=== PATIENT | female | born 1985 | race Caucasian/White ===

== ENCOUNTER 2017-10-10 11:10 | Outpatient (RCR) | payer OTHER ==
[~2017-10-10] VITALS: Ht 167.6 cm; Wt 82.6 kg
[~2017-10-10 11:10] MED LIST: AZIT-1 PO; LEVO-85 PO; PRE1 PO; PRED20TA6 PO
[2017-10-10 11:16] VITALS: BP 114/85
[2017-10-10] MEDS ORDERED: ROMIPLOSTIM 250 MCG SUBQ ONE (12:00)
== END 2017-10-10 13:01 | disposition home or self-care (01) ==
LOC: SPU 11:10
PROVIDERS: ATTEND Internal Medicine Hematology
DX: D69.3 Immune thrombocytopenic purpura (principal)
CPT/HCPCS: 96372; J2796

== ENCOUNTER → 2017-10-16 | Outpatient (CLI) | payer OTHER ==
[~2017-10-16] MED LIST changes: +ROMIPLOSTIM 250 MCG SUBQ ONE
[2017-10-16 15:35] VITALS: BP 115/76
== END ==
LOC: SPU 14:47
PROVIDERS: ATTEND Nurse Practitioner Family
DX: D69.3 Immune thrombocytopenic purpura (principal)
CPT/HCPCS: 36415; 96372; J2796

== ENCOUNTER 2017-10-26 08:00 | Outpatient (RCR) | payer OTHER ==
[2017-08-03 09:11] VITALS: BP 118/82
[2017-08-03 09:18] LABS: PLATELET COUNT, AUTOMATED 239 K/uL (150-450)
--- NOTE | 2017-08-03 09:46 | ONC Progress Note - NP.Halsey ---
Patient History Date of Service Aug 03, 2017 Reason For Visit/HPI Patient is seen in the clinic today for follow-up of her idiopathic thrombocytopenia purpura. Patient is currently on 0.5 mg of prednisone and is scheduled to discontinue prednisone completely on 08/06/2017. She reports that she is feeling very well and previous side effects of her extra chin and her buffalo hump have resolved. She does have some jittery feeling several days after decreasing her tapered dose which resolves. She denies any bleeding or bruising. She denies any fever or chills. She continues to go to college classes and has no problems concentrating. Problem List (1) Idiopathic thrombocytopenia Medical History Family History: Diabetes mellitus (DM) Siblings x3 FH: HTN (hypertension) MOTHER FH: asthma Siblings x3 FH: breast cancer MOTHER FH: skin cancer MOTHER Psychosocial History Social History Patient is engaged with no children. 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 She is a never smoker. She drinks socially. No abuse of illicit drugs. Smoking Status: Never Smoker Medications and Allergies Active Scripts Prednisone (PREDNISONE) 1 Mg Tab, 1 MG PO QDAY, #35 TAB 1 Refill Tapering dose, take as directed 2.5mg x 1 week and then 1.5 mg x 1 week then .5mg x 1 week Prov:LEONORA CAPELLAN-KERA, ONC 07/13/17 Prednisone (PREDNISONE) 20 Mg Tablet, 60 MG PO QDAY, #90 TAB 1 Refill Prov:LEONORA CAPELLAN-BC, ONC 05/21/17 Allergies: Coded Allergies: cefaclor (Verified Allergy, Unknown, 01/08/17) Review of System/Physical Exam Review of Systems Hematologic: Positive for Fatigue (mild) Physical Exam Vital Signs Temperature: 97.5 Pulse: 71 BP Systolic: 118 BP Diastolic: 82 Respiratory Rate: 16 O2 SAT: 91 O2 Delivery: Height (inches) 66.00 Weight lb: Weight oz: Weight Kg (Antonino): Pain: 0 ECOG Score: 0 General: Stable, Well Developed, Well Nourished, Not In Acute Distress Psychiatric: Mood appears normal, Affect appears normal Skin: No Skin Rashes, No Bruising, No Purpura Other Rest of the exam was deferred today due to conversation and management of her ITP discussion Diagnostic Studies Diagnostic Studies Laboratory Laboratory Tests 08/03/17 09:05 Laboratory Tests 08/03/17 09:05: White Blood Count 6.5, Red Blood Count 4.88, Hemoglobin 15.0, Hematocrit 43.2, Mean Corpuscular Volume 88.5, Mean Corpuscular Hemoglobin 30.8, Mean Corpuscular Hemoglobin Concent 34.7, Red Cell Distribution Width 14.0, Platelet Count 239, Mean Platelet Volume 7.6, Neutrophils (%) (Auto) 62.6, Lymphocytes (% ) (Auto) 23.3, Monocytes (%) (Auto) 11.1, Eosinophils (%) (Auto) 2.0, Basophils (%) (Auto) 1.0, Nucleated RBC Relative Count (auto) 0.0, Neutrophils # (Auto) 4.1, Lymphocytes # (Auto) 1.5, Monocytes # (Auto) 0.7, Eosinophils # (Auto) 0.1 , Basophils # (Auto) 0.1, Nucleated RBC Absolute Count (auto) 0.00, Sodium Level 138, Potassium Level 4.2, Chloride Level 105, Carbon Dioxide Level 23, Blood Urea Nitrogen 18, Creatinine 0.80, Glomerular Filtration Rate Calc > 60.0 , Random Glucose 84, Calcium Level 9.6, Total Bilirubin 0.4, Aspartate Amino Transf (AST/SGOT) 23, Alanine Aminotransferase (ALT/SGPT) 38, Alkaline Phosphatase 47, Total Protein 7.2, Albumin 4.2 Assessment and Plan Assessment & Plan Acute idiopathic thrombocytopenia purpura with severe thrombocytopenia at 7000. Patient received IVIG 1 g/kg daily for two days, April 23, 2017 and April. Her platelet count improved from 8000 to 23,000. Patient received also prednisone at 80 mg daily and she is currently on prednisone taper. She is currently on 0.5 mg taper. She will discontinue prednisone on 08/06/2017. If she appears to have side effects from the taper we did discuss possibly due in 0.5 mg every other day times a week which means then she will then discontinue the following Sunday. We'll continue to do a CBC weekly 4 weeks and she will follow with Dr. Alejandra to review results. If it any time her platelets begin to significantly drop she will be restarted on prednisone. Amenorrhea possibly experienced by prednisone. 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 We will reassess at her next office visit 1. Continue prednisone 0.5mg until 08/06/2017 and then discontinue We will continue monitoring CBC weekly 2. Patient will contact us if she has questions or concerns or develops abnormal bleeding I personally spent a total of 15 minutes. Of that 15 minutes was counseling/ coordination of patient's care. See my note above for details. LEONORA CAPELLAN BANDING MACHINE OPERATOR-BC, ONC Aug 03, 2017 09:46
[2017-08-10 09:59] VITALS: BP 120/82
[2017-08-10 10:02] LABS: PLATELET COUNT, AUTOMATED 299 K/uL (150-450)
[2017-08-17 11:48] VITALS: BP 119/79
[2017-08-17 11:58] LABS: PLATELET COUNT, AUTOMATED 275 K/uL (150-450)
[2017-08-24 14:04] LABS: PLATELET COUNT, AUTOMATED 253 K/uL (150-450)
[2017-09-07 08:50] LABS: PLATELET COUNT, AUTOMATED 95 K/uL (150-450)
[2017-09-07 09:17] VITALS: BP 116/79
[2017-09-10 08:52] VITALS: BP 124/86
[2017-09-10 08:59] LABS: PLATELET COUNT, AUTOMATED 119 K/uL (150-450)
--- NOTE | 2017-09-10 09:06 | Oncology Note ---
Patient is seen briefly in the clinic today post redraw of CBC. Previously platelet count was down to 95,000, on redraw platelet count is increased to 119, 000. Patient has been on antibiotics, Levaquin 500 mg by mouth daily since Sunday. She will take Levaquin with her as they are traveling on a cruise. Patient will follow when she returns from the cruise with repeat CBC. Patient verbalized understanding and that if she noticed any acute bleeding or bruising she would seek medical care. LEONORA CAPELLAN SUGARCANE PLANTER-BC, ONC Sep 10, 2017 09:06
[2017-09-21 14:36] VITALS: BP 116/82
--- NOTE | 2017-09-21 20:30 | ONCOLOGY FOLLOW UP NOTE ---
EVENT DATE: September 21, 2017 DIAGNOSES Acute idiopathic thrombocytopenia purpura. CHIEF COMPLAINT Patient is here today for followup of her ITP. HEMATOLOGY HISTORY Patient is a 32-year-old female with no significant past medical history who presented to the emergency department of [facility] with low platelets. She noticed recently that she had heavy periods for the last six months, and for the last month prior to her presentation she noticed increased bruising, and for the week prior to her presentation she started to have multiple episodes of prolonged epistaxis lasting more than one hour. She felt tired and fatigued and she has also shortness of breath, so the patient saw her primary care provider, Darshana Cleveland, who ordered a CBC which showed a platelet count of 7000. On her presentation to the emergency department at [facility] on April 27, 2017, her CBC showed a white count of 9.96, hemoglobin 15.3, hematocrit 41.4% and platelet count 8000. Patient received two daily doses at 1 g/kg between April 27, 2017 and April, and her repeat CBC on April 28, 2017 showed a platelet count of 12,000 , and on April 29, 2017 her platelet count was 23,000, trending up. Patient also started prednisone at daily doses of 80 mg on April 28, 2017. HISTORY OF PRESENT ILLNESS Patient is here today for followup of her ITP. She is off prednisone for a few weeks now. She is complaining of cough with expectoration, shortness of breath and wheezing from recent upper respiratory tract infection. She has some sinus headaches sometimes, but other than that she is really doing very well. PAST MEDICAL HISTORY 1. Pneumonia. 2. History of broken bones. PAST SURGICAL HISTORY Insignificant. SOCIAL HISTORY Patient is engaged with no children. 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 She is a never smoker. She drinks socially. No abuse of illicit drugs. FAMILY HISTORY Maternal grandmother with Kingston's granulomatosis. Mother with breast cancer. Paternal grandfather with bladder cancer. Maternal grandfather with prostate cancer. CURRENT MEDICATIONS Nexium 20 mg daily. ALLERGIES CEFACLOR which caused hives. REVIEW OF SYSTEMS CONSTITUTIONAL: She has occasional sweating. HEENT: Ears: No tinnitus or hearing problem. Nose: She had two episodes of epistaxis since she has been discharged from the hospital, but she actually stayed only for a few minutes. Throat: No sore throat or mouth ulcers. Eyes: No diplopia or visual changes. RESPIRATORY: The patient has cough with expectoration, shortness of breath and wheezing. CARDIOVASCULAR: No chest pain, orthopnea, or paroxysmal nocturnal dyspnea (PND) . No edema. No palpitations. GASTROINTESTINAL: No nausea or vomiting. No diarrhea or constipation. No change in bowel movements. No heartburn or swallowing difficulties. No abdominal pain. No jaundice. No hematemesis, melena or rectal bleeding. GENITOURINARY: No hematuria or dysuria. MUSCULOSKELETAL: She has redistribution of fat over the back of her neck with neck pain. NEUROLOGICAL: She has sinus headache. HEMATOLOGIC/LYMPHATIC: No bleeding or easy bruising. No weakness or fatigue. No enlarged lymph nodes. SKIN: No skin rash or lumps. PSYCHIATRIC: No anxiety or depression. PHYSICAL EXAMINATION GENERAL: Looks stable. Well-developed, well-nourished, and in no acute distress. VITAL SIGNS: Blood pressure 116/82, pulse 70 per minute, respirations 16 per minute, temperature 97.7, pulse ox 91% on room air. HEENT: Head: Atraumatic. No sinus tenderness to palpation. Eyes: No icterus or conjunctivitis. Mouth and throat: No oral thrush or mucositis. NECK: Supple. No cervical or supraclavicular lymphadenopathy. LUNGS: Clear to auscultation and percussion bilaterally. HEART: Regular rate and rhythm. No gallops, murmurs, clicks or rubs. ABDOMEN: Soft and lax. No tenderness. No hepatosplenomegaly. No masses. EXTREMITIES: No cyanosis, clubbing or edema. LYMPHATICS: No peripheral lymphadenopathy. NEUROLOGICAL: Conscious, alert and oriented times three. No focal motor or sensory deficits. PSYCHIATRIC: Mood and affect appear normal. SKIN: No skin rash, bruise or purpuric eruption. DIAGNOSTIC DATA CBC showed white count 5000, hemoglobin 14.9, hematocrit 42.7, platelets 119, 000. ASSESSMENT Acute idiopathic thrombocytopenia purpura with severe thrombocytopenia at 7000. Patient received IVIG 1 g/kg daily for two days, April 23, 2017 and April. Her platelet count improved from 8000 to 23,000. Patient received prednisone 80 mg daily, which was tapered over the few months after that and she is off prednisone for about four weeks now. Her last platelet count done on September 10, 2017 was 119,000. I am planning to check her blood count in a week, then every two weeks, and I will see her in a month from now with CBC and chem panel at that time. If the patient is steroid dependent and her platelet count starts to drop after being off prednisone, then I will start to treat her with Nplate. I explained that to the patient. She is agreeable with the plan of management. PLAN 1. CBC in a week and then every two weeks after that. 2. Patient to return on October 26, 2017 with CBC, chem panel. 3. Patient is to contact us for any new concerns or complaints. ASHISH
[2017-09-28 08:57] VITALS: BP 112/70
[2017-09-28 09:09] LABS: PLATELET COUNT, AUTOMATED 64 K/uL (150-450)
[2017-10-09 15:15] VITALS: BP 116/82
[2017-10-09 15:56] LABS: PLATELET COUNT, AUTOMATED 30 K/uL (150-450)
--- NOTE | 2017-10-09 17:22 | ONC Progress Note - NP.Halsey ---
Patient History Date of Service Oct 09, 2017 Reason For Visit/HPI Patient is seen in the clinic today for follow-up of her idiopathic thrombocytopenia purpura. Patient had labs completed on 09/28/2017 and was noted to have a decreased platelet count of 64,000, this is a decrease from prior lab draw of 119,000. Patient noticed that she was having increased fatigue and bruising on her arm and by without trauma. Patient was concerned and called the clinic today to request a CBC to have her platelet checked. Platelet level today is 30,000. In review of Dr. Alejandra's last note, he indicated that if her platelet count dropped after being off of prednisone that he would start her on Nplate. Review of side effects and education regarding this medication was completed today. Patient reports that side effects from the prednisone appeared to be worse than side effects of Nplate. Patient also received education regarding safety measures with a platelet count of 30,000. She verbalized understanding that if she experienced any type of trauma to her head that she should go directly to the emergency room. Currently patient is having no evidence of abnormal bleeding. Problem List (1) Idiopathic thrombocytopenia Medical History Family History: Diabetes mellitus (DM) Siblings x3 FH: HTN (hypertension) MOTHER FH: asthma Siblings x3 FH: breast cancer MOTHER FH: skin cancer MOTHER Psychosocial History Social History Patient is engaged with no children. 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 She is a never smoker. She drinks socially. No abuse of illicit drugs. Smoking History: No Smoking Status: Never Smoker Medications and Allergies Active Scripts Levofloxacin 500 Mg Tab (LEVAQUIN 500 MG TAB) 500 Mg Tablet, 500 MG PO DAILY, # 30 TAB Prov:LEONORA CAPELLAN QUARTER SECTION IRONER-BC, ONC 09/07/17 Allergies: Coded Allergies: cefaclor (Verified Allergy, Unknown, 01/08/17) Review of System/Physical Exam Review of Systems All Systems Reviewed/Normal: Yes, Except as Noted Constitutional: Positive for Recent Infection (patient previously experienced upper respiratory cold. Symptoms have since been resolved) Hematologic: Positive for Fatigue Musculoskeletal: Positive for Muscle Pain Skin: Positive for Other (bruise on her arm and upper thigh) Physical Exam Vital Signs Temperature: 97.9 Pulse: 76 BP Systolic: 116 BP Diastolic: 82 Respiratory Rate: 16 O2 SAT: 96 O2 Delivery: Height (inches) 66.00 Weight lb: Weight oz: Weight Kg (Antonino): Pain: 0 ECOG Score: 0 General: Stable, Well Developed, Not In Acute Distress Psychiatric: Mood appears normal, Affect appears normal Skin: No Skin Rashes, No Bruising, No Purpura Other Rest of the exam was deferred today to discuss treatment with Nplate. Diagnostic Studies Diagnostic Studies Laboratory Laboratory Tests 09/28/17 09:01 10/09/17 15:15 Laboratory Tests 09/28/17 09:01: Sodium Level 138, Potassium Level 4.0, Chloride Level 105, Carbon Dioxide Level 23, Blood Urea Nitrogen 11, Creatinine 0.80, Glomerular Filtration Rate Calc > 60.0, Random Glucose 102, Calcium Level 9.0, Total Bilirubin 0.5, Aspartate Amino Transf (AST/SGOT) 49, Alanine Aminotransferase (ALT/SGPT) 40, Alkaline Phosphatase 47, Total Protein 6.6, Albumin 3.9 10/09/17 15:15: White Blood Count 6.3, Red Blood Count 4.88, Hemoglobin 14.8, Hematocrit 43.2, Mean Corpuscular Volume 88.5, Mean Corpuscular Hemoglobin 30.3, Mean Corpuscular Hemoglobin Concent 34.2, Red Cell Distribution Width 13.0, Platelet Count 30, Mean Platelet Volume 10.0, Neutrophils (%) (Auto) 55.7, Lymphocytes (% ) (Auto) 31.5, Monocytes (%) (Auto) 9.0, Eosinophils (%) (Auto) 3.0, Basophils ( %) (Auto) 0.8, Nucleated RBC Relative Count (auto) 0.0, Neutrophils # (Auto) 3.5 , Lymphocytes # (Auto) 2.0, Monocytes # (Auto) 0.6, Eosinophils # (Auto) 0.2, Basophils # (Auto) 0.0, Nucleated RBC Absolute Count (auto) 0.00, Peripheral Blood Smear Yes Assessment and Plan Assessment & Plan Acute idiopathic thrombocytopenia purpura with severe thrombocytopenia at 7000. Patient received IVIG 1 g/kg daily for two days, April 23, 2017 and April. Her platelet count improved from 8000 to 23,000. Patient received prednisone 80 mg daily, which was tapered over the few months after that and she is off prednisone for about four weeks now. Her last platelet count done on September 10, 2017 was 119,000. Patient then had labs drawn on 09/28/2017 with a platelet level was 64,000, today's level is 30,000. Discussion of initiation of Nplate 1 mcg/kg was completed today. Patient is not interested in restarting prednisone as she has a wedding in February. Also in review of Dr. Alejandra's dictation, it is noted that patient is probably steroid dependent with her decrease of platelets off of prednisone. I did call Dr. Leon and discuss the plan of care. Her recommendation was to start Nplate as well. CBC will be completed weekly and Nplate will be dosed accordingly. I explained that to the patient. She is agreeable with the plan of management. She will follow with Dr. Alejandra in 2-3 weeks when he is available. Plan: Nplate 1mcg/kg to start with insurance approval and given weekly according to the dosing guidelines CBC weekly prior to Nplate Follow with Dr. Alejandra in 2-3 weeks I personally spent a total of 25 minutes. Of that 15 minutes was counseling/ coordination of patient's care. See my note above for details. LEONORA CAPELLAN QUARTER SECTION IRONER-BC, ONC Oct 09, 2017 17:22
[2017-10-16 14:10] VITALS: BP 124/86
--- NOTE | 2017-10-16 15:51 | ONC Progress Note - NP.Halsey ---
Patient History Date of Service Oct 16, 2017 Reason For Visit/HPI Patient is seen in the clinic today for follow-up of her idiopathic thrombocytopenia purpura. Patient reported that she felt like she was having increased fatigue and abnormal feeling. CBC was drawn today and patient's platelets were noted at 82,000. Patient did receive Nplate last week 1 mg/kg for decreased platelet count of 64,000. Patient is responding. He denies any side effects today. She is slightly anxious. After education by myself last week pharmacy did visit with patient as well to review possible side effects. Problem List (1) Idiopathic thrombocytopenia Oncology History Patient is a 32-year-old female with no significant past medical history who presented to the emergency department of [facility] with low platelets. She noticed recently that she had heavy periods for the last six months, and for the last month prior to her presentation she noticed increased bruising, and for the week prior to her presentation she started to have multiple episodes of prolonged epistaxis lasting more than one hour. She felt tired and fatigued and she has also shortness of breath, so the patient saw her primary care provider, Darshana Cleveland, who ordered a CBC which showed a platelet count of 7000. On her presentation to the emergency department at [facility] on April 27, 2017, her CBC showed a white count of 9.96, hemoglobin 15.3, hematocrit 41.4% and platelet count 8000. Patient received two daily doses at 1 g/kg between April 27, 2017 and April, and her repeat CBC on April 28, 2017 showed a platelet count of 12,000 , and on April 29, 2017 her platelet count was 23,000, trending up. Patient also started prednisone at daily doses of 80 mg on April 28, 2017 with a slow taper until discontinuation. Patient then had recurrent thrombocytopenia approximately 5 weeks off of prednisone therapy. Platelet level on 09-28-17 was 64,000, platelet decreased to 30,000 on 10/09/2017. Patient was started on Nplate 10-10-17, one milligram per kilogram. Medical History Family History: Diabetes mellitus (DM) Siblings x3 FH: HTN (hypertension) MOTHER FH: asthma Siblings x3 FH: breast cancer MOTHER FH: skin cancer MOTHER Psychosocial History Social History Patient is engaged with no children. 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 She is a never smoker. She drinks socially. No abuse of illicit drugs. Smoking History: No Smoking Status: Never Smoker Medications and Allergies Active Scripts Levofloxacin 500 Mg Tab (LEVAQUIN 500 MG TAB) 500 Mg Tablet, 500 MG PO DAILY, # 30 TAB Prov:LEONORA CAPELLAN HEAD CHAR FILTER TANK TENDER-BC, ONC 09/07/17 Allergies: Coded Allergies: cefaclor (Verified Allergy, Unknown, 01/08/17) Review of System/Physical Exam Review of Systems All Systems Reviewed/Normal: Yes, Except as Noted Hematologic: Positive for Fatigue Physical Exam Vital Signs Temperature: 97.7 Pulse: 73 BP Systolic: 124 BP Diastolic: 86 Respiratory Rate: 16 O2 SAT: 99 O2 Delivery: Height (inches) 66.00 Weight lb: Weight oz: Weight Kg (Antonino): Pain: 0 ECOG Score: 0 General: Stable, Well Developed, Well Nourished, Not In Acute Distress HEENT: No Trauma Psychiatric: Mood appears normal, Affect appears normal Skin: No Skin Rashes, No Bruising, No Purpura Diagnostic Studies Diagnostic Studies Laboratory Laboratory Tests 09/28/17 09:01 10/16/17 14:05 Laboratory Tests 09/28/17 09:01: Sodium Level 138, Potassium Level 4.0, Chloride Level 105, Carbon Dioxide Level 23, Blood Urea Nitrogen 11, Creatinine 0.80, Glomerular Filtration Rate Calc > 60.0, Random Glucose 102, Calcium Level 9.0, Total Bilirubin 0.5, Aspartate Amino Transf (AST/SGOT) 49, Alanine Aminotransferase (ALT/SGPT) 40, Alkaline Phosphatase 47, Total Protein 6.6, Albumin 3.9 10/09/17 15:15: Red Blood Count 4.88, Mean Corpuscular Volume 88.5, Mean Corpuscular Hemoglobin 30.3, Mean Corpuscular Hemoglobin Concent 34.2, Red Cell Distribution Width 13.0 , Mean Platelet Volume 10.0, Monocytes (%) (Auto) 9.0, Eosinophils (%) (Auto) 3.0, Basophils (%) (Auto) 0.8, Nucleated RBC Relative Count (auto) 0.0, Monocytes # (Auto) 0.6, Eosinophils # (Auto) 0.2, Basophils # (Auto) 0.0, Nucleated RBC Absolute Count (auto) 0.00, Peripheral Blood Smear Yes 10/16/17 14:05: White Blood Count 8.3, Hemoglobin 15.0, Hematocrit 43.5, Platelet Count 82, Neutrophils (%) (Auto) 67.5, Lymphocytes (%) (Auto) 23.3, Neutrophils # (Auto) 5.6, Lymphocytes # (Auto) 1.9 Assessment and Plan Assessment & Plan Acute idiopathic thrombocytopenia purpura with severe thrombocytopenia at 7000. Patient received IVIG 1 g/kg daily for two days, April 23, 2017 and April. Her platelet count improved from 8000 to 23,000. Patient received prednisone 80 mg daily, which was tapered over the few months after that and she is off prednisone for about four to five weeks and her platelet level dropped. . Her last platelet count done on September 10, 2017 was 119,000. Patient then had labs drawn on 09/28/2017 with a platelet level was 64,000, and then 30,000. Discussion of initiation of Nplate 1 mcg/kg was completed with education regarding side effects. Pharmacy also met with patient. In review of Dr. Alejandra's dictation, it is noted that patient is probably steroid dependent with her decrease of platelets off of prednisone. Dr. Leon was called and plan of care was discussed. Nplate started 1 mg/kg on 10/10/2017 with a platelet level of 30,000. Platelets are increased to 80,000 today.I will continue with weekly Nplate and CBC dosed accordingly. If platelet count is greater than 400,000 dose will be withheld. I am following up to date guideline recommendations. She will follow with Dr. Alejandra in 2-3 weeks when he is available. Plan: Nplate 1mcg/kg today and given weekly according to the dosing guidelines CBC weekly prior to Nplate Follow with Dr. Alejandra in 2-3 weeks I personally spent a total of 20 minutes. Of that 15 minutes was counseling/ coordination of patient's care. See my note above for details. LEONORA CAPELLAN HEAD CHAR FILTER TANK TENDER-BC, ONC Oct 16, 2017 15:51
[~2017-10-26 08:00] MED LIST changes: -ROMIPLOSTIM 250 MCG SUBQ ONE
[2017-10-26 08:29] VITALS: BP 114/72
== END 2017-10-31 ==
LOC: SPU 08:00
PROVIDERS: ATTEND Internal Medicine Hematology
DX: D69.3 Immune thrombocytopenic purpura (principal); Z79.899 Other long term (current) drug therapy; N91.2 Amenorrhea, unspecified; R05 Cough; R06.02 Shortness of breath; R53.83 Other fatigue
CPT/HCPCS: 36415; 82040; 82247; 82310; 82374; 82435; 82565; 82947; 84075; 84132; 84155; 84295; 84443; 84450; 84460; 84520; 85025; 85027; 99211; 99212

== ENCOUNTER → 2017-10-26 | Outpatient (CLI) | payer OTHER ==
--- NOTE | 2017-10-26 16:31 | ONCOLOGY FOLLOW UP NOTE ---
EVENT DATE: October 26, 2017 DIAGNOSES Acute idiopathic thrombocytopenia purpura. CHIEF COMPLAINT Patient is here today for followup of her ITP. HEMATOLOGY HISTORY Patient is a 32-year-old female with no significant past medical history who presented to the emergency department of [facility] with low platelets. She noticed recently that she had heavy periods for the last six months, and for the last month prior to her presentation she noticed increased bruising, and for the week prior to her presentation she started to have multiple episodes of prolonged epistaxis lasting more than one hour. She felt tired and fatigued and she has also shortness of breath, so the patient saw her primary care provider, Darshana Cleveland, who ordered a CBC which showed a platelet count of 7000. On her presentation to the emergency department at [facility] on April 27, 2017, her CBC showed a white count of 9.96, hemoglobin 15.3, hematocrit 41.4% and platelet count 8000. Patient received two daily doses at 1 g/kg between April 27, 2017 and April, and her repeat CBC on April 28, 2017 showed a platelet count of 12,000 , and on April 29, 2017 her platelet count was 23,000, trending up. Patient also started prednisone at daily doses of 80 mg on April 28, 2017. HISTORY OF PRESENT ILLNESS Patient is here today for followup of her ITP with relapse, currently on Nplate therapy. She is complaining of being achy and having some headache for about a day after her Nplate shot. Other than that she is really doing very well. Her bruising resolved completely. PAST MEDICAL HISTORY 1. Pneumonia. 2. History of broken bones. PAST SURGICAL HISTORY Insignificant. SOCIAL HISTORY Patient is engaged with no children. 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 She is a never smoker. She drinks socially. No abuse of illicit drugs. FAMILY HISTORY Maternal grandmother with Kingston's granulomatosis. Mother with breast cancer. Paternal grandfather with bladder cancer. Maternal grandfather with prostate cancer. CURRENT MEDICATIONS Nexium 20 mg daily. ALLERGIES CEFACLOR which caused hives. REVIEW OF SYSTEMS CONSTITUTIONAL: She has occasional sweating. HEENT: Ears: No tinnitus or hearing problem. Nose: She had two episodes of epistaxis since she has been discharged from the hospital, but she actually stayed only for a few minutes. Throat: No sore throat or mouth ulcers. Eyes: No diplopia or visual changes. RESPIRATORY: The patient has cough with expectoration, shortness of breath and wheezing. CARDIOVASCULAR: No chest pain, orthopnea, or paroxysmal nocturnal dyspnea (PND) . No edema. No palpitations. GASTROINTESTINAL: No nausea or vomiting. No diarrhea or constipation. No change in bowel movements. No heartburn or swallowing difficulties. No abdominal pain. No jaundice. No hematemesis, melena or rectal bleeding. GENITOURINARY: No hematuria or dysuria. MUSCULOSKELETAL: The patient feels achy after the Nplate shot for nearly a day or day and a half after the shot. NEUROLOGICAL: She has a headache after Nplate for about a day or day and a half. HEMATOLOGIC/LYMPHATIC: No bleeding or easy bruising. No weakness or fatigue. No enlarged lymph nodes. SKIN: No skin rash or lumps. PSYCHIATRIC: No anxiety or depression. PHYSICAL EXAMINATION GENERAL: Looks stable. Well-developed, well-nourished, and in no acute distress. VITAL SIGNS: Blood pressure 114/72, pulse 76 per minute, respirations 16 per minute, temperature 97, pulse ox 96% on room air. HEENT: Head: Atraumatic. No sinus tenderness to palpation. Eyes: No icterus or conjunctivitis. Mouth and throat: No oral thrush or mucositis. NECK: Supple. No cervical or supraclavicular lymphadenopathy. LUNGS: Clear to auscultation and percussion bilaterally. HEART: Regular rate and rhythm. No gallops, murmurs, clicks or rubs. ABDOMEN: Soft and lax. No tenderness. No hepatosplenomegaly. No masses. EXTREMITIES: No cyanosis, clubbing or edema. LYMPHATICS: No peripheral lymphadenopathy. NEUROLOGICAL: Conscious, alert and oriented times three. No focal motor or sensory deficits. PSYCHIATRIC: Mood and affect appear normal. SKIN: No skin rash, bruise or purpuric eruption. DIAGNOSTIC DATA CBC showed white count 7.2, hemoglobin 15.2, hematocrit 44, platelets 57,000, which is down from 82,000. ASSESSMENT Acute idiopathic thrombocytopenia purpura with severe thrombocytopenia at 7000. Patient received IVIG 1 g/kg daily for two days, April 23, 2017 and April. Her platelet count improved from 8000 to 23,000. She received prednisone 1 mg/kg with total dose 80 mg, which was tapered over a few months after that, and patient was off prednisone, and her platelets after tapering the prednisone relapsed, so the patient started treatment with Nplate on October 10, 2016. Her platelet count improved from 32,000 to 82,000, and currently 57,000. I am planning to proceed with Nplate therapy today at 125 mcg subcutaneously, and I advised the patient to come every week to have blood count to be done, and we will adjust the dose of Nplate after that. I will see her in a month from now with CBC and chem panel. PLAN 1. Nplate 125 mcg subcutaneously today. 2. Patient to return in one month with CBC, chem panel. 3. CBC, chem panel to be checked weekly prior to Nplate therapy. 4. Patient to contact us for any new concern or complaints. MTDD
== END ==
LOC: SPU 09:07
PROVIDERS: ATTEND Internal Medicine Hematology
DX: D69.3 Immune thrombocytopenic purpura (principal); R51 Headache; R05 Cough
CPT/HCPCS: 96372; J2796

== ENCOUNTER → 2017-11-02 | Outpatient (CLI) | payer OTHER ==
[~2017-11-02] MED LIST changes: +ROMIPLOSTIM 250 MCG SUBQ ONE
== END ==
LOC: SPU 09:48
PROVIDERS: ATTEND Internal Medicine Hematology
DX: D69.3 Immune thrombocytopenic purpura (principal)
CPT/HCPCS: 96372; J2796

== ENCOUNTER → 2017-11-09 | Outpatient (CLI) | payer OTHER | LOC: SPU 10:11 | PROVIDERS: ATTEND Internal Medicine Hematology | DX: D69.3 Immune thrombocytopenic purpura (principal) | CPT/HCPCS: 96372; J2796 ==

== ENCOUNTER 2017-11-15 10:05 | Observation (INO) | payer OTHER ==
[~2017-11-15] VITALS: Ht 167.6 cm; Wt 84.6 kg
[~2017-11-15 10:05] MED LIST changes: -ROMIPLOSTIM 250 MCG SUBQ ONE
[2017-11-15] MEDS: ACETAMINOPHEN 325 MG TAB PO PRN (10:33)
[2017-11-15] MEDS: diphenhydrAMINE 50 MG/ML VIAL IVP PRN (10:33)
[2017-11-15] MEDS: methylPREDNIS SUCC 125 MG/2ML IVP PRN (10:34)
[2017-11-15] MEDS ORDERED: [UNRECOGNIZED DRUG - MIXTURE] IV ONE (11:30)
[2017-11-15 16:12] VITALS: BP 120/82
[2017-11-15 17:00] VITALS: BP 120/82
--- NOTE | 2017-11-15 18:59 | History & Physical ---
History of Present Illness History of Present Illness 32yo female with ITP was directly admitted for IVIG infusion. The patient denies bleeding or bruising. She had a routine CBC and was found to have a platelet count of 16k. She [facility]. She had no problems with the infusion. History Problems: (1) Idiopathic thrombocytopenia Status: Chronic Allergies: Coded Allergies: cefaclor (Verified Allergy, Unknown, 01/08/17) Patient History: Diabetes mellitus (DM) Siblings x3 FH: HTN (hypertension) MOTHER FH: asthma Siblings x3 FH: breast cancer MOTHER FH: skin cancer MOTHER Hx Smoking: No Smoking Status: Never Smoker Hx Alcohol Use: Yes Hx Substance Use Disorder: No Social Drug Use: Never Review of Systems All Systems Reviewed/Normal: Yes, Except as Noted Exam Vital Signs Vital Signs Date Time Temp Pulse Resp B/P (MAP) Pulse Ox O2 Delivery O2 Flow Rate FiO2 11/15/17 18:42 92 11/15/17 17:00 97.9 63 16 120/82 (95) Room Air General Appearance: Alert, Awake, No Acute Distress Cardiovascular: Regular Rate and Rhythm Respiratory: Clear to Auscultation GI: Abd Soft and Non-Tender Extremities: No Edema Medical Decision Making Data Points Item Value Date Time Platelet Count 145 K/uL L 11/02/17 0836 Platelet Count 36 K/uL *L 11/09/17 0935 Platelet Count 19 K/uL *L 11/14/17 0910 Platelet Count 16 K/uL *L 11/15/17 0823 White Blood Count 5.6 k/uL 11/02/17 0836 White Blood Count 6.7 k/uL 11/09/17 0935 White Blood Count 6.8 k/uL 11/14/17 0910 White Blood Count 6.8 k/uL 11/15/17 0823 Hemoglobin 15.2 g/dL 11/02/17 0836 Hemoglobin 16.0 g/dL 11/09/17 0935 Hemoglobin 14.9 g/dL 11/14/17 0910 Hemoglobin 15.2 g/dL 11/15/17 0823 Sodium Level 138 mmol/L 11/09/17 0935 Potassium Level 4.6 mmol/L 11/09/17 0935 Chloride Level 101 mmol/L 11/09/17 0935 Carbon Dioxide Level 28 mmol/L 11/09/17 0935 Blood Urea Nitrogen 12 mg/dl 11/09/17 0935 Creatinine 0.90 mg/dl 11/09/17 0935 Glomerular Filtration Rate Calc > 60.0 11/09/17 09 Random Glucose 87 mg/dl 11/09/17 0935 Calcium Level 9.9 mg/dl 11/09/17 0935 Total Bilirubin 0.3 mg/dl 11/09/17 0935 Aspartate Amino Transf (AST/SGOT) 26 U/L 11/09/17 0935 Alanine Aminotransferase (ALT/SGPT) 41 U/L 11/09/17 0935 Alkaline Phosphatase 53 U/L 11/09/17 0935 Total Protein 7.4 gm/dl 11/09/17 0935 Albumin 4.3 g/dl 11/09/17 0935 Assessment and Plan Problems: (1) Idiopathic thrombocytopenia Status: Chronic Assessment & Plan: Diagnosed in April. She received IVIG at [facility] at that time without problems. Now not responding to N-plate as well with a platelet count of 16k today. She has received 1 of 2 IVIG infusions with the second being tomorrow. CBC tomorrow and premedication with Benadryl, Methylprednisolone, and APAP. Copies to: DIMITRI MORENO MD Venous Thromboembolism Antithrombotics Is Pt On Any Antithrombotics?: No BRENDAN VEGA MD Nov 15, 2017 18:59
[2017-11-15 19:57] VITALS: BP 115/77
[2017-11-15] MEDS ORDERED: ACETAMINOPHEN 325 MG TAB PO PRN (20:15)
[2017-11-15] MEDS: hydrOXYzine PAMOATE 25 MG CAP PO PRN ×2 (20:32→21:47)
[2017-11-16 06:06] LABS: PLATELET COUNT, AUTOMATED 72 K/uL (150-450)
--- NOTE | 2017-11-16 06:55 | Hospitalist Depart ---
Discharge Summary Reason for Hosp/Final Diag: (1) Idiopathic thrombocytopenia Status: Chronic Hospital Course & Plan: Diagnosed in April. She received IVIG at [facility] at that time without problems. Now not responding to N-plate as well with a platelet count of 16k yesterday. She had received 1 of 2 IVIG infusions yesterday and her platelet count came up to 72k. Premedication with Benadryl, Methylprednisolone, and APAP. She will go home after the second infusion. Follow up including a CBC on 11/19 at the [facility]. Departure Weight (Pounds): 186 Weight (Ounces): 7.0 Result Diagram: 11/16/17 0525 Item Value Date Time Platelet Count 145 K/uL L 11/02/17 0836 Platelet Count 36 K/uL *L 11/09/17 0935 Platelet Count 19 K/uL *L 11/14/17 0910 Platelet Count 16 K/uL *L 11/15/17 0823 Platelet Count 72 K/uL L 11/16/17 0525 White Blood Count 9.2 k/uL 11/16/17 0525 Hemoglobin 13.9 g/dL 11/16/17 0525 Condition: Improved Discharge: Home Discharge Instructions Home Meds No Active Prescriptions or Reported Meds Diet: Regular Activity: As Tolerated Special Instructions: Follow up with the Cancer Center on 11/19 as scheduled. Copies to: DIMITRI MORENO MD Venous Thromboembolism Antithrombotics Is Pt On Any Antithrombotics?: No BRENDAN VEGA MD Nov 16, 2017 06:55
[2017-11-16] MEDS: ACETAMINOPHEN 325 MG TAB PO PRN (08:49)
[2017-11-16] MEDS: diphenhydrAMINE 50 MG/ML VIAL IVP PRN (08:55)
[2017-11-16] MEDS: methylPREDNIS SUCC 125 MG/2ML IVP PRN (08:55)
[2017-11-16 09:24] VITALS: BP 118/79
[2017-11-16 09:45] VITALS: BP 103/78
[2017-11-16 10:51] VITALS: BP 117/82
[2017-11-16] MEDS ORDERED: [UNRECOGNIZED DRUG - MIXTURE] IV ONE (11:30)
[2017-11-16 14:08] VITALS: BP 114/77
== END 2017-11-16 10:49 | disposition home or self-care (01) ==
LOC: UNDOADMOB 10:05 → MED 10:05
PROVIDERS: ADMIT Internal Medicine; ATTEND Internal Medicine
DX: D69.3 Immune thrombocytopenic purpura (principal)
CPT/HCPCS: 36415; 85025; G0378; G0379; J1200; J1459; J2930; Q0177

== ENCOUNTER → 2017-11-19 | Outpatient (CLI) | payer OTHER ==
[~2017-11-19] MED LIST changes: +ROMIPLOSTIM 250 MCG SUBQ ONE
== END ==
LOC: SPU 08:59
PROVIDERS: ATTEND Internal Medicine Hematology
DX: D69.3 Immune thrombocytopenic purpura (principal)
CPT/HCPCS: 96372; J2796

== ENCOUNTER → 2017-11-26 | Outpatient (CLI) | payer OTHER | LOC: SPU 08:28 | PROVIDERS: ATTEND Internal Medicine Hematology | DX: D69.3 Immune thrombocytopenic purpura (principal) | CPT/HCPCS: 96372; J2796 ==

== ENCOUNTER → 2017-12-03 | Outpatient (CLI) | payer OTHER ==
[2017-12-03 14:02] VITALS: BP 130/80
== END ==
LOC: SPU 13:58
PROVIDERS: ATTEND Internal Medicine Hematology
DX: D69.3 Immune thrombocytopenic purpura (principal)
CPT/HCPCS: 96372; J2796

== ENCOUNTER → 2017-12-10 | Outpatient (CLI) | payer OTHER ==
[2017-12-10 08:25] VITALS: BP 105/77
== END ==
LOC: SPU 07:41
PROVIDERS: ATTEND Internal Medicine Hematology
DX: D69.3 Immune thrombocytopenic purpura (principal)
CPT/HCPCS: 85027; 96372; J2796; 82040; 82247; 82310; 82374; 82435; 82565; 82947; 84075; 84132; 84155; 84295; 84450; 84460; 84520

== ENCOUNTER → 2017-12-17 | Outpatient (CLI) | payer OTHER ==
[2017-12-10 08:25] VITALS: BP 105/77
== END ==
LOC: SPU 14:22
PROVIDERS: ATTEND Internal Medicine Hematology
DX: D69.3 Immune thrombocytopenic purpura (principal)
CPT/HCPCS: 96372; J2796

== ENCOUNTER → 2017-12-24 | Outpatient (CLI) | payer OTHER ==
[2017-12-24 09:17] VITALS: BP 115/83
== END ==
LOC: SPU 08:18
PROVIDERS: ATTEND Internal Medicine Hematology
DX: D69.3 Immune thrombocytopenic purpura (principal)
CPT/HCPCS: 96372; J2796

== ENCOUNTER → 2017-12-27 | Outpatient (CLI) | payer OTHER ==
[~2017-12-27] MED LIST changes: -ROMIPLOSTIM 250 MCG SUBQ ONE
--- NOTE | 2017-12-27 17:55 | RADIOLOGY IMAGING REPORT ---
FACILITY: [facility] PATIENT NAME: Dayana Cazares : 1985 MR: [id number] V: [id number] EXAM DATE: ORDERING PHYSICIAN: DIMITRI MORENO TECHNOLOGIST: Location: [facility] Patient: Dayana Cazares : 1985 Visit/Account:[id number] Date of Sevice: 12/27/2017 GALLBLADDER HISTORY: Right upper quadrant pain since Sunday COMPARISON: None. FINDINGS: Gallbladder: Unremarkable; no stones or sludge. Liver: Negative. Common duct: Normal, two mm diameter. Pancreas: Partially obscured by bowel, visualized aspects unremarkable. Right kidney: Right kidney appears unremarkable measuring 10.4 cm in length Upper abdominal aorta and IVC: Patent. Ascites: None visualized. IMPRESSION: Unremarkable right upper quadrant ultrasound Report Dictated By: Jennifer Angulo MD at 12/27/2017 5:48 PM Report E-Signed By: Jennifer Angulo MD at 12/27/2017 5:50 PM WSN:[id number]
== END ==
LOC: US 16:19
PROVIDERS: ATTEND Internal Medicine Hematology
DX: R10.11 Right upper quadrant pain (principal); D69.3 Immune thrombocytopenic purpura
CPT/HCPCS: 76705

== ENCOUNTER → 2017-12-31 | Outpatient (CLI) | payer OTHER ==
[~2017-12-31] MED LIST changes: +ROMIPLOSTIM 250 MCG SUBQ ONE
== END ==
LOC: SPU 08:15
PROVIDERS: ATTEND Internal Medicine Hematology
DX: D69.3 Immune thrombocytopenic purpura (principal)
CPT/HCPCS: 36415; 85027; 96372; J2796; 82040; 82247; 82310; 82374; 82435; 82565; 82947; 84075; 84132; 84155; 84295; 84450; 84460; 84520

== ENCOUNTER → 2018-01-07 | Outpatient (CLI) | payer OTHER | LOC: SPU 09:17 | PROVIDERS: ATTEND Internal Medicine Hematology | DX: D69.3 Immune thrombocytopenic purpura (principal) | CPT/HCPCS: 96372; J2796 ==

== ENCOUNTER → 2018-01-14 | Outpatient (CLI) | payer OTHER | LOC: SPU 08:10 | PROVIDERS: ATTEND Internal Medicine Hematology | DX: D69.3 Immune thrombocytopenic purpura (principal) | CPT/HCPCS: 96372; J2796 ==

== ENCOUNTER → 2018-01-25 | Outpatient (CLI) | payer OTHER | LOC: SPU 09:40 | PROVIDERS: ATTEND Internal Medicine Hematology | DX: D69.3 Immune thrombocytopenic purpura (principal) | CPT/HCPCS: 96372; J2796 ==

== ENCOUNTER → 2018-01-30 | Outpatient (CLI) | payer OTHER | LOC: SPU 09:17 | PROVIDERS: ATTEND Internal Medicine Hematology | DX: D69.3 Immune thrombocytopenic purpura (principal) | CPT/HCPCS: 96372; J2796 ==

== ENCOUNTER → 2018-01-30 | Outpatient (RCR) | payer OTHER ==
[2017-11-02 08:28] VITALS: BP 124/83
[2017-11-09 09:31] VITALS: BP 109/75
[2017-11-14 09:12] VITALS: BP 120/93
[2017-11-15 08:15] VITALS: BP 113/80
[2017-11-19 08:30] VITALS: BP 126/96
[2017-11-23 14:12] VITALS: BP 109/79
--- NOTE | 2017-11-25 07:03 | [facility]-TAR[facility] ONCOLOGY NOTE ---
EVENT DATE: November 23, 2017 DIAGNOSES Acute idiopathic thrombocytopenia purpura. CHIEF COMPLAINT Patient is here today for followup of her ITP. HEMATOLOGY HISTORY Patient is a 32-year-old female with no significant past medical history who presented to the emergency department of [facility] with low platelets. She noticed recently that she had heavy periods for the last six months, and for the last month prior to her presentation she noticed increased bruising, and for the week prior to her presentation she started to have multiple episodes of prolonged epistaxis lasting more than one hour. She felt tired and fatigued and she has also shortness of breath, so the patient saw her primary care provider, Darshana Cleveland, who ordered a CBC which showed a platelet count of 7000. On her presentation to the emergency department at [facility] on April 27, 2017, her CBC showed a white count of 9.96, hemoglobin 15.3, hematocrit 41.4% and platelet count 8000. Patient received two daily doses at 1 g/kg between April 27, 2017 and April, and her repeat CBC on April 28, 2017 showed a platelet count of 12,000 , and on April 29, 2017 her platelet count was 23,000, trending up. Patient also started prednisone at daily doses of 80 mg on April 28, 2017. HISTORY OF PRESENT ILLNESS Patient is here today for followup of her ITP. She is feeling very well currently without any complaint. PAST MEDICAL HISTORY 1. Pneumonia. 2. History of broken bones. PAST SURGICAL HISTORY Insignificant. SOCIAL HISTORY Patient is engaged with no children. 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 She is a never smoker. She drinks socially. No abuse of illicit drugs. FAMILY HISTORY Maternal grandmother with Kingston's granulomatosis. Mother with breast cancer. Paternal grandfather with bladder cancer. Maternal grandfather with prostate cancer. CURRENT MEDICATIONS Nexium 20 mg daily. ALLERGIES CEFACLOR which caused hives. REVIEW OF SYSTEMS CONSTITUTIONAL: No appetite or weight change. No fever, chills or sweating. No recent infection. HEENT: Ears: No tinnitus or hearing problem. Nose: No nasal discharge or epistaxis. Throat: No sore throat or mouth ulcers. Eyes: No diplopia or visual changes. RESPIRATORY: No shortness of breath. No cough, expectoration or hemoptysis. CARDIOVASCULAR: No chest pain, orthopnea, or paroxysmal nocturnal dyspnea (PND) . No edema. No palpitations. GASTROINTESTINAL: No nausea or vomiting. No diarrhea or constipation. No change in bowel movements. No heartburn or swallowing difficulties. No abdominal pain. No jaundice. No hematemesis, melena or rectal bleeding. GENITOURINARY: No hematuria or dysuria. MUSCULOSKELETAL: No pain in the muscles, joints or bones. NEUROLOGICAL: No tingling or numbness in the hands or feet. No headaches or convulsions. HEMATOLOGIC/LYMPHATIC: No bleeding or easy bruising. No weakness or fatigued. No enlarged lymph nodes. SKIN: No skin rash or lumps. PSYCHIATRIC: No anxiety or depression. PHYSICAL EXAMINATION GENERAL: Looks stable. Well-developed, well-nourished, and in no acute distress. VITAL SIGNS: Blood pressure 109/79, pulse 74 per minute, respirations 16 per minute, temperature 98, pulse oximetry 94% on room air. HEENT: Head: Atraumatic. No sinus tenderness to palpation. Eyes: No icterus or conjunctivitis. Mouth and throat: No oral thrush or mucositis. NECK: Supple. No cervical or supraclavicular lymphadenopathy. LUNGS: Clear to auscultation and percussion bilaterally. HEART: Regular rate and rhythm. No gallops, murmurs, clicks or rubs. ABDOMEN: Soft and lax. No tenderness. No hepatosplenomegaly. No masses. EXTREMITIES: No cyanosis, clubbing or edema. LYMPHATICS: No peripheral lymphadenopathy. NEUROLOGICAL: Conscious, alert and oriented times three. No focal motor or sensory deficits. PSYCHIATRIC: Mood and affect appear normal. SKIN: No skin rash, bruise or purpuric eruption. DIAGNOSTIC DATA CBC showed white count 5400, hemoglobin 15.1, hematocrit 43.7, platelets 204, 000. Chem panel is totally normal. ASSESSMENT Acute idiopathic thrombocytopenia purpura with severe thrombocytopenia. Initially was 7000. Patient received IVIG in April 2017. Her platelet count improved after that. Patient received also prednisone, which was tapered over a few months after that , and the patient was off prednisone, and her platelets, after tapering the prednisone, dropped again, so the patient received IVIG again, and she was put on Nplate. She is currently on Nplate 175 mcg subcutaneously weekly. Her current platelet count is 204,000. I am planning to check her CBC, Chem panel on a weekly basis, and I am planning to treat her with Nplate weekly. I will see her in a month from now with CBC and Chem panel. Patient is happy that her platelet count is back to normal again. PLAN 1. Nplate 175 mcg subcutaneously weekly if the platelet count is above 50,000 and below 400,000, and hold Nplate if the platelet count is above 400,000. 2. CBC, chem panel to be checked weekly. 3. Patient to return in one month with CBC, chem panel. 4. Patient to contact us for any new concern or complaints. ASHISH
[2017-11-26 08:28] VITALS: BP 126/89
[2017-12-17 08:48] VITALS: BP 121/71
[2017-12-17 08:53] LABS: PLATELET COUNT, AUTOMATED 363 K/uL (150-450)
--- NOTE | 2017-12-25 16:13 | RADIOLOGY IMAGING REPORT ---
FACILITY: [facility] PATIENT NAME: Dayana Cazares : 1985 MR: [id number] V: [id number] EXAM DATE: ORDERING PHYSICIAN: DIMITRI MORENO TECHNOLOGIST: Location: [facility] Patient: Dayana Cazares : 1985 Visit/Account:[id number] Date of Sevice: 12/25/2017 EXAMINATION: Chest 2 Views HISTORY: RLL lung pain COMPARISON: None. FINDINGS: The lungs are clear. No focal consolidation or pleural fluid. No pneumothorax. Normal cardiomedias tinal silhouette, with normal heart size and pulmonary vascularity. Visualized osseous structures ar e unremarkable. IMPRESSION: Negative chest. Report Dictated By: Dario Serrato MD at 12/25/2017 4:08 PM Report E-Signed By: Dario Serrato MD at 12/25/2017 4:09 PM WSN:[id number]
[2017-12-28 13:38] VITALS: BP 108/64
--- NOTE | 2017-12-28 18:31 | ONCOLOGY FOLLOW UP NOTE ---
EVENT DATE: December 28, 2017 DIAGNOSES Acute idiopathic thrombocytopenia purpura. CHIEF COMPLAINT Patient is here today for followup of her ITP. HEMATOLOGY HISTORY Patient is a 32-year-old female with no significant past medical history who presented to the emergency department of [facility] with low platelets. She noticed recently that she had heavy periods for the last six months, and for the last month prior to her presentation she noticed increased bruising, and for the week prior to her presentation she started to have multiple episodes of prolonged epistaxis lasting more than one hour. She felt tired and fatigued and she has also shortness of breath, so the patient saw her primary care provider, Darshana Cleveland, who ordered a CBC which showed a platelet count of 7000. On her presentation to the emergency department at [facility] on April 27, 2017, her CBC showed a white count of 9.96, hemoglobin 15.3, hematocrit 41.4% and platelet count 8000. Patient received two daily doses at 1 g/kg between April 27, 2017 and April, and her repeat CBC on April 28, 2017 showed a platelet count of 12,000 , and on April 29, 2017 her platelet count was 23,000, trending up. Patient also started prednisone at daily doses of 80 mg on April 28, 2017. HISTORY OF PRESENT ILLNESS Patient is here today for followup of her ITP on Nplate therapy. Patient is complaining of fatigue for two days after her Nplate shot. She had an episode of severe epigastric pain, stabbing in nature, radiating to the right shoulder, and the patient was evaluated in the ER with ultrasound and chest x-ray which were normal. Her pain has recovered completely currently. PAST MEDICAL HISTORY 1. Pneumonia. 2. History of broken bones. PAST SURGICAL HISTORY Insignificant. SOCIAL HISTORY Patient is engaged with no children. 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 She is a never smoker. She drinks socially. No abuse of illicit drugs. FAMILY HISTORY Maternal grandmother with Kingston's granulomatosis. Mother with breast cancer. Paternal grandfather with bladder cancer. Maternal grandfather with prostate cancer. CURRENT MEDICATIONS Nexium 20 mg daily. ALLERGIES CEFACLOR which caused hives. REVIEW OF SYSTEMS CONSTITUTIONAL: No appetite or weight change. No fever, chills or sweating. No recent infection. HEENT: Ears: No tinnitus or hearing problem. Nose: No nasal discharge or epistaxis. Throat: No sore throat or mouth ulcers. Eyes: No diplopia or visual changes. RESPIRATORY: No shortness of breath. No cough, expectoration or hemoptysis. CARDIOVASCULAR: No chest pain, orthopnea, or paroxysmal nocturnal dyspnea (PND) . No edema. No palpitations. GASTROINTESTINAL: No nausea or vomiting. No diarrhea or constipation. No change in bowel movements. No heartburn or swallowing difficulties. The patient had an episode of severe epigastric pain with visit to the ER with ultrasound and chest x-ray done which did not show any abnormalities. Her pain recovered completely currently. No jaundice. No hematemesis, melena or rectal bleeding. GENITOURINARY: No hematuria or dysuria. MUSCULOSKELETAL: No pain in the muscles, joints or bones. NEUROLOGICAL: No tingling or numbness in the hands or feet. No headaches or convulsions. HEMATOLOGIC/LYMPHATIC: No bleeding or easy bruising. She is weak, tired and fatigued for about two days after her Nplate shot.. No enlarged lymph nodes. SKIN: No skin rash or lumps. PSYCHIATRIC: No anxiety or depression. PHYSICAL EXAMINATION GENERAL: Looks stable. Well-developed, well-nourished, and in no acute distress. VITAL SIGNS: Blood pressure 108/64, pulse 59 per minute, respirations 16 per minute, temperature 96.9, pulse oximetry 94% on room air. HEENT: Head: Atraumatic. No sinus tenderness to palpation. Eyes: No icterus or conjunctivitis. Mouth and throat: No oral thrush or mucositis. NECK: Supple. No cervical or supraclavicular lymphadenopathy. LUNGS: Clear to auscultation and percussion bilaterally. HEART: Regular rate and rhythm. No gallops, murmurs, clicks or rubs. ABDOMEN: Soft and lax. No tenderness. No hepatosplenomegaly. No masses. EXTREMITIES: No cyanosis, clubbing or edema. LYMPHATICS: No peripheral lymphadenopathy. NEUROLOGICAL: Conscious, alert and oriented times three. No focal motor or sensory deficits. PSYCHIATRIC: Mood and affect appear normal. SKIN: No skin rash, bruise or purpuric eruption. DIAGNOSTIC DATA CBC showed white count 6.3, hemoglobin 14.5, hematocrit 42, platelets 134,000. Chem panel is normal. On chest x-ray lungs are clear. ASSESSMENT Iidiopathic thrombocytopenia purpura with severe thrombocytopenia. Initially her platelet count was 7000. Patient received IVIG in April 2017 and her platelet count improved after that. She received also prednisone, and on tapering the prednisone, while the patient was off prednisone, her platelet count relapsed again and the patient received IVIG, and she started Nplate after that. Her last dose of Nplate was 150 mcg subcutaneously, and her current platelet count is 134,000. I am planning to check her CBC on a weekly basis, and I will administer Nplate with the dose based on her platelet count. I will see her again in a month with CBC and chem panel at that time. PLAN 1. Nplate as per schedule after CBC, to keep the platelets above 50,000 and below 400,000, and to hold Nplate if it is above 400,000. 2. CBC, chem panel to be checked weekly. 3. Patient to return in one month with CBC, chem panel. 4. Patient to contact us for any new concerns or complaints. HIEND
[2017-12-31 12:05] VITALS: BP 122/79
[2018-01-07 08:37] VITALS: BP 108/68
[2018-01-07 08:51] LABS: PLATELET COUNT, AUTOMATED 65 K/uL (150-450)
[2018-01-14 08:32] VITALS: BP 115/82
[2018-01-17 08:39] VITALS: BP 113/84
[2018-01-17] MEDS: NS(*) 0.9% 100 ML BAG 100 ML IVPB PRN (08:40)
[2018-01-17] MEDS: diphenhydrAMINE 50 MG/ML VIAL IVP PRN (08:47)
[2018-01-17] MEDS: ACETAMINOPHEN 325 MG TAB PO PRN (08:47)
[2018-01-17] MEDS: methylPREDNIS SUCC 125 MG/2ML IVP PRN (08:48)
[2018-01-18 08:32] VITALS: BP 110/84
[2018-01-18] MEDS: methylPREDNIS SUCC 125 MG/2ML IVP PRN (08:40)
[2018-01-18] MEDS: ACETAMINOPHEN 325 MG TAB PO PRN (08:41)
[2018-01-18] MEDS: diphenhydrAMINE 50 MG/ML VIAL IVP PRN (08:41)
[2018-01-18] MEDS: NS(*) 0.9% 100 ML BAG 100 ML IVPB PRN (09:00)
[2018-01-18 13:59] VITALS: BP 117/80
[2018-01-21 12:32] LABS: PLATELET COUNT, AUTOMATED 465 K/uL (150-450)
[2018-01-25 08:40] VITALS: BP 118/74
[2018-01-25 08:44] LABS: PLATELET COUNT, AUTOMATED 472 K/uL (150-450)
[~2018-01-30] MED LIST changes: +ACETAMINOPHEN 325 MG TAB PO PRN; +DEXTROSE 5%(*) 100 ML BAG 100 ML IVPB PRN; +LIDOCAINE/SOD BICARB 8.4% SYR ID PRN; +[UNRECOGNIZED DRUG - MIXTURE] IV ONE; +diphenhydrAMINE 25 MG CAP PO PRN; +methylPREDNIS SUCC 125 MG/2ML IVP PRN
[2018-01-30 08:18] LABS: PLATELET COUNT, AUTOMATED 162 K/uL (150-450)
== END ==
LOC: SPU 11-01 08:47 → ONC 11-23 14:00 → SPU 11-26 08:11 → ONC 12-28 13:30 → SPU 01-07 08:30
PROVIDERS: ATTEND Internal Medicine Hematology
DX: D69.3 Immune thrombocytopenic purpura (principal); D69.6 Thrombocytopenia, unspecified; R53.83 Other fatigue; R53.1 Weakness
CPT/HCPCS: 36415; 85025; 85027; 96365; 96366; 96367; 96375; 99212; J1200; J1459; J2930; J7050; 71046; 82040; 82247; 82310; 82374; 82435; 82565; 82947; 84075; 84132; 84155; 84295; 84450; 84460; 84520

== ENCOUNTER 2018-02-05 16:57 | Inpatient (IN) | payer OTHER ==
[~2018-02-05] VITALS: Ht 165.1 cm; Wt 76.4 kg
[~2018-02-05 16:57] MED LIST changes: -ACETAMINOPHEN 325 MG TAB PO PRN; -ETON1VAG7 VG; -ROMIPLOSTIM 250 MCG SUBQ ONE; -[UNRECOGNIZED DRUG - CODE] SQ; -diphenhydrAMINE 50 MG/ML VIAL IVP PRN; -methylPREDNIS SUCC 125 MG/2ML IVP PRN
[2018-02-05 17:00] VITALS: BP 130/92
[2018-02-05] MEDS ORDERED: diphenhydrAMINE 50 MG/ML VIAL IVP PRN (17:13)
[2018-02-05] MEDS ORDERED: methylPREDNIS SUCC 125 MG/2ML IVP PRN (17:13)
[2018-02-05] MEDS ORDERED: ACETAMINOPHEN 325 MG TAB PO PRN ×2 (17:13→17:20)
[2018-02-05] MEDS ORDERED: ONDANSETRON 4 MG/2 ML VIAL IVP PRN (17:20)
[2018-02-05] MEDS ORDERED: FLUSH 10 ML SYR IVP PRN (17:20)
[2018-02-05] MEDS ORDERED: ETON1VAG7 VG (17:32)
[2018-02-05] MEDS ORDERED: [UNRECOGNIZED DRUG - CODE] SQ (17:35)
[2018-02-05] MEDS ORDERED: [UNRECOGNIZED DRUG - MIXTURE] IV ONE ×2 (17:45→19:15)
--- NOTE | 2018-02-05 17:45 | History & Physical ---
History of Present Illness Chief Complaint bleeding gums History of Present Illness She presented to the cancer center with bleeding gums today. She reports it takes almost one hour to get the bleeding to stop. She states she had labs done at the cancer center [place] [address]. She did receive N Plate at the cancer center this morning. Dr. Mark Alejandra recommended the patient be admitted for IVIG infusion for two days. History Problems: (1) Idiopathic thrombocytopenia Status: Chronic Home Meds No Active Prescriptions or Reported Meds Allergies: Coded Allergies: cefaclor (Verified Allergy, Unknown, 01/08/17) Patient History: Diabetes mellitus (DM) Siblings x3 FH: HTN (hypertension) MOTHER FH: asthma Siblings x3 FH: breast cancer MOTHER FH: skin cancer MOTHER Hx Smoking: No Smoking Status: Never Smoker Caffeine Intake: Coffee Caffeine/Cups Per Day: 1-2 Hx Alcohol Use: Yes Hx Substance Use Disorder: No Social Drug Use: Never Review of Systems All Systems Reviewed/Normal: Yes, Except as Noted Exam General Appearance: Alert, Awake, No Acute Distress, Afebrile Neuro: No Gross deficits Cardiovascular: Regular Rate and Rhythm Respiratory: No Respiratory Distress, Clear to Auscultation GI: Abd Soft and Non-Tender Psych: Alert & Oriented X3, Appropriate Mood & Affect Assessment and Plan Problems: (1) Idiopathic thrombocytopenia Status: Chronic Assessment & Plan: She [place] [address]. She will receive IVIG tonight. We will continue to monitor for bleeding and Platelet counts. Venous Thromboembolism Antithrombotics Is Pt On Any Antithrombotics?: No Prophylaxis Tx Contraindicated Pharmacological Contraindicati: Low Platelet Count JORGE WELDON [facility] Feb 05, 2018 17:45
[2018-02-05 20:15] VITALS: BP 114/85
[2018-02-06 01:57] VITALS: BP 114/80
[2018-02-06 05:53] LABS: PLATELET COUNT, AUTOMATED 61 K/uL (150-450)
[2018-02-06 08:36] VITALS: Ht 165.1 cm; Wt 76.4 kg
[2018-02-06 09:06] VITALS: BP 126/94
[2018-02-06 10:47] VITALS: BP 124/89
--- NOTE | 2018-02-06 11:06 | Hospitalist Progress Note ---
Subjective Progress Notes Subjective She denies any complaints this AM. No bleeding. She tolerated the IVIG fairly well. Physical Exam Vital Signs Date Time Temp Pulse Resp B/P (MAP) Pulse Ox O2 Delivery O2 Flow Rate FiO2 02/06/18 10:47 98.3 62 24 124/89 (101) 96 Room Air Intake and Output 02/07/18 06:59 Intake Total 840 ml Balance 840 ml Intake Oral 840 ml General Appearance: Alert, Awake Result Diagram: 02/06/18 0536 02/06/18 0536 Assessment and Plan Problems: (1) Idiopathic thrombocytopenia Status: Chronic Assessment & Plan: Her platelet count has improved to 61K. She will receive a second dose of IVIG tonight. We will continue to monitor for bleeding and watch platelet counts. Exam Sepsis Risk: No Definite Risk JOSE JUAN ISBELL MD Feb 06, 2018 11:06
[2018-02-06 14:38] VITALS: BP 122/82
[2018-02-06] MEDS ORDERED: methylPREDNIS SUCC 125 MG/2ML IVP ONE (20:30)
[2018-02-06] MEDS ORDERED: diphenhydrAMINE 50 MG/ML VIAL IVP ONE (20:30)
[2018-02-06] MEDS ORDERED: ACETAMINOPHEN 325 MG TAB PO ONE (20:30)
[2018-02-06] MEDS ORDERED: [UNRECOGNIZED DRUG - MIXTURE] IV ONE (21:00)
[2018-02-06 22:38] VITALS: BP 117/82
[2018-02-07 03:56] VITALS: BP 123/79
[2018-02-07 05:49] LABS: PLATELET COUNT, AUTOMATED 113 K/uL (150-450)
[2018-02-07 07:40] VITALS: BP 122/86
--- NOTE | 2018-02-07 09:43 | Hospitalist Depart ---
Discharge Summary Reason for Hosp/Final Diag: (1) Idiopathic thrombocytopenia Status: Chronic Hospital Course & Plan: Her platelet count has improved to 113K. She has received 2 doses of IVIG. She will discharge and follow up with Dr. Mark Alejandra later this morning. Departure Weight (Pounds): 168 Weight (Ounces): 7.0 Result Diagram: 02/07/1852402/07/18524 Condition: Improved Discharge: Home, Self Care Time Spent: < 30 min Discharge Instructions Home Meds Reported Medications Romiplostim (NPLATE) 250 Mcg Vial, 150 MCG SQ, VIAL once per week 02/05/18 Etonogestrel/Ethinyl Estradiol (NUVARING VAGINAL RING) 1 Each Vag.ring, 1 EACH VG, VAG.RING 02/05/18 Follow up Referrals: Hematology and Oncology - In One Day @ [facility] with Effie Molina Md Diet: Regular Activity: As Tolerated Copies to: EFFIE MORENO MD Venous Thromboembolism Antithrombotics Is Pt On Any Antithrombotics?: No ARTEMIO ISBELL MD Feb 07, 2018 09:43
== END 2018-02-07 10:20 | disposition home or self-care (01) | DRG 813 ==
LOC: OBSVTOIN 16:57 → MED 16:57 → INTOOBSV 16:57
PROVIDERS: ADMIT Family Medicine; ATTEND Family Medicine
DX: D69.3 Immune thrombocytopenic purpura (principal); Z88.8 Allergy status to other drugs, medicaments and biological substances
CPT/HCPCS: 36415; 82040; 82247; 82310; 82374; 82435; 82565; 82947; 84075; 84132; 84155; 84295; 84450; 84460; 84520; 85025; J1200; J1459; J2930

== ENCOUNTER → 2018-02-05 | Outpatient (CLI) | payer OTHER ==
[~2018-02-05] MED LIST changes: -DEXTROSE 5%(*) 100 ML BAG 100 ML IVPB PRN; +ETON1VAG7 VG; -LIDOCAINE/SOD BICARB 8.4% SYR ID PRN; +[UNRECOGNIZED DRUG - CODE] SQ; -[UNRECOGNIZED DRUG - MIXTURE] IV ONE; -diphenhydrAMINE 25 MG CAP PO PRN; +diphenhydrAMINE 50 MG/ML VIAL IVP PRN
[2018-02-05 16:07] VITALS: BP 131/93
== END ==
LOC: SPU 13:31
PROVIDERS: ATTEND Internal Medicine Hematology
DX: D69.3 Immune thrombocytopenic purpura (principal)
CPT/HCPCS: 96372; J2796

== ENCOUNTER → 2018-02-19 | Outpatient (CLI) | payer OTHER ==
[2018-02-06 08:36] VITALS: BMI 27.9
[~2018-02-19] MED LIST changes: +ETON1VAG7 VG; +ROMIPLOSTIM 250 MCG SUBQ ONE; +[UNRECOGNIZED DRUG - CODE] SQ
== END ==
LOC: SPU 12:32
PROVIDERS: ATTEND Internal Medicine Hematology
DX: D69.3 Immune thrombocytopenic purpura (principal)
CPT/HCPCS: 96372; J2796

== ENCOUNTER → 2018-02-26 | Outpatient (CLI) | payer OTHER ==
[2018-02-06 08:36] VITALS: BMI 27.9
[2018-02-26 14:08] VITALS: BP 116/89
== END ==
LOC: SPU 10:25
PROVIDERS: ATTEND Internal Medicine Hematology
DX: D69.3 Immune thrombocytopenic purpura (principal)
CPT/HCPCS: 96372; J2796

== ENCOUNTER 2018-05-03 09:59 | Outpatient (RCR) | payer OTHER ==
[2018-02-05 08:58] VITALS: BP 121/89
[2018-02-06 08:36] VITALS: Wt 85.5 kg
[2018-02-07 11:27] VITALS: BP 124/85
[2018-02-12 08:30] VITALS: BP 112/75
[2018-02-12 08:58] LABS: PLATELET COUNT, AUTOMATED 623 K/uL (150-450)
[2018-03-01 08:22] VITALS: BP 115/87
[2018-03-04 09:20] VITALS: BP 121/84
[2018-03-08 11:48] LABS: PLATELET COUNT, AUTOMATED 634 K/uL (150-450)
[2018-03-08 11:50] VITALS: BP 120/76
--- NOTE | 2018-03-08 17:20 | ONCOLOGY FOLLOW UP NOTE ---
EVENT DATE: March 08, 2018 DIAGNOSES Acute idiopathic thrombocytopenia purpura. CHIEF COMPLAINT Patient is here today for followup of her ITP. HEMATOLOGY HISTORY Patient is a 32-year-old female with no significant past medical history who presented to the emergency department of [facility] with low platelets. She noticed recently that she had heavy periods for the last six months, and for the last month prior to her presentation she noticed increased bruising, and for the week prior to her presentation she started to have multiple episodes of prolonged epistaxis lasting more than one hour. She felt tired and fatigued and she has also shortness of breath, so the patient saw her primary care provider, Darshana Cleveland, who ordered a CBC which showed a platelet count of 7000. On her presentation to the emergency department at [facility] on April 27, 2017, her CBC showed a white count of 9.96, hemoglobin 15.3, hematocrit 41.4% and platelet count 8000. Patient received two daily doses at 1 g/kg between April 27, 2017 and April, and her repeat CBC on April 28, 2017 showed a platelet count of 12,000 , and on April 29, 2017 her platelet count was 23,000, trending up. Patient also started prednisone at daily doses of 80 mg on April 28, 2017. HISTORY OF PRESENT ILLNESS Patient is here today for followup of her ITP on Nplate therapy. She is complaining of sweating, being nervous, short of breath and palpitations after she started a full dose of prednisone. Denies any bleeding or easy bruising. PAST MEDICAL HISTORY 1. Pneumonia. 2. History of broken bones. PAST SURGICAL HISTORY Insignificant. SOCIAL HISTORY Patient is engaged with no children. 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 She is a never smoker. She drinks socially. No abuse of illicit drugs. FAMILY HISTORY Maternal grandmother with Kingston's granulomatosis. Mother with breast cancer. Paternal grandfather with bladder cancer. Maternal grandfather with prostate cancer. CURRENT MEDICATIONS Nexium 20 mg daily. ALLERGIES CEFACLOR which caused hives. REVIEW OF SYSTEMS CONSTITUTIONAL: No appetite or weight change. No fever, chills. The patient has some sweating. No recent infection. HEENT: Ears: No tinnitus or hearing problem. Nose: No nasal discharge or epistaxis. Throat: No sore throat or mouth ulcers. Eyes: No diplopia or visual changes. RESPIRATORY: She has shortness of breath. No cough, expectoration or hemoptysis. CARDIOVASCULAR: No chest pain, orthopnea, or paroxysmal nocturnal dyspnea (PND) . No edema. She has palpitations. GASTROINTESTINAL: No nausea or vomiting. No diarrhea or constipation. No change in bowel movements. No heartburn or swallowing difficulties. The patient had an episode of severe epigastric pain with visit to the ER with ultrasound and chest x-ray done which did not show any abnormalities. Her pain recovered completely currently. No jaundice. No hematemesis, melena or rectal bleeding. GENITOURINARY: No hematuria or dysuria. MUSCULOSKELETAL: No pain in the muscles, joints or bones. NEUROLOGICAL: No tingling or numbness in the hands or feet. No headaches or convulsions. She has anxiety from the prednisone use. HEMATOLOGIC/LYMPHATIC: No bleeding or easy bruising. She is weak, tired and fatigued for about two days after her Nplate shot.. No enlarged lymph nodes. SKIN: No skin rash or lumps. PSYCHIATRIC: No anxiety or depression. PHYSICAL EXAMINATION GENERAL: Looks stable. Well-developed, well-nourished, and in no acute distress. VITAL SIGNS: Blood pressure 120/76, pulse 80 per minute, respirations 16 per minute, temperature 97, pulse oximetry 96% on room air. HEENT: Head: Atraumatic. No sinus tenderness to palpation. Eyes: No icterus or conjunctivitis. Mouth and throat: No oral thrush or mucositis. NECK: Supple. No cervical or supraclavicular lymphadenopathy. LUNGS: Clear to auscultation and percussion bilaterally. HEART: Regular rate and rhythm. No gallops, murmurs, clicks or rubs. ABDOMEN: Soft and lax. No tenderness. No hepatosplenomegaly. No masses. EXTREMITIES: No cyanosis, clubbing or edema. LYMPHATICS: No peripheral lymphadenopathy. NEUROLOGICAL: Conscious, alert and oriented times three. No focal motor or sensory deficits. PSYCHIATRIC: Mood and affect appear normal. SKIN: No skin rash, bruise or purpuric eruption. DIAGNOSTIC DATA CBC showed white count 14.2, hemoglobin 14.7, hematocrit 41.4, platelets 634, 000. ASSESSMENT Iidiopathic thrombocytopenia purpura with severe thrombocytopenia. Initial platelet count was 7000. Patient received IVIG with improvement in her platelet count. She received also prednisone, and on tapering the prednisone, the patient had a relapse after taking prednisone off. She was maintained on Nplate with initial response, but currently she has a tough time to control her platelet count with Nplate alone. She received recently IVIG and she started prednisone course with improvement of her platelet count, which is currently 634 ,000. I had a long discussion with the patient today regarding further management. We are planning to continue prednisone and will taper it gradually. She started on a dose of 76 mg daily for a week now, and I am planning to continue the next week with the same dose, then after that I will taper her off prednisone 10 mg every week up until reaching the dose of 35 mg, then we are going to decrease the dose after that by 5 mg every week until we reach 5 mg, then after that 2.5 mg for another week and then we will taper her off completely of prednisone. If the patient will have a relapse with prednisone we are planning to treat her either with rituximab or Decadron pulse dose every two weeks, or 3-4 weeks based on her response. We are planning also to increase the dose of Nplate in the future if we have to. We can use IVIG and prednisone if she will need like 2-3 courses per year, this will be reasonable treatment for her. Patient was offered also splenectomy, but she wants to stop about that option at the moment. I am planning to see her in a month with CBC and chem panel, and I will check her CBC every week while we are tapering her prednisone; PLAN 1. Prednisone 76 mg daily for a week, then after that we will decrease the dose to 65 mg for a week, then 55 mg for a week, then 45 mg for another week, then 35 mg for another week. Then after that we will decrease the dose weekly by 5 mg until we reach 5 mg, then we will continue with 2.5 mg for another week and will stop prednisone at that time. 2. Consider treatment with rituximab or pulse dose Decadron if the patient will show a relapse of her platelet count. 3. Patient to return in one month with CBC and chem panel. 4. CBC to be checked weekly. 5. Patient to contact us for any new concern or complaints. HIEND
[2018-03-15 12:14] LABS: PLATELET COUNT, AUTOMATED 385 K/uL (150-450)
[2018-03-15 12:30] VITALS: BP 111/82
[2018-03-22 08:55] VITALS: BP 125/75
[2018-03-29 09:36] VITALS: BP 119/88
[2018-03-29 09:52] LABS: PLATELET COUNT, AUTOMATED 116 K/uL (150-450)
[2018-04-05 11:55] VITALS: BP 116/85
[2018-04-05 12:11] LABS: PLATELET COUNT, AUTOMATED 241 K/uL (150-450)
--- NOTE | 2018-04-05 16:38 | ONCOLOGY FOLLOW UP NOTE ---
EVENT DATE: April 05, 2018 DIAGNOSES Acute idiopathic thrombocytopenia purpura. CHIEF COMPLAINT Patient is here today for followup of her ITP. HEMATOLOGY HISTORY Patient is a 33-year-old female with no significant past medical history who presented to the emergency department of [facility] with low platelets. She noticed recently that she had heavy periods for the last six months, and for the last month prior to her presentation she noticed increased bruising, and for the week prior to her presentation she started to have multiple episodes of prolonged epistaxis lasting more than one hour. She felt tired and fatigued and she has also shortness of breath, so the patient saw her primary care provider, Darshana Cleveland, who ordered a CBC which showed a platelet count of 7000. On her presentation to the emergency department at [facility] on April 27, 2017, her CBC showed a white count of 9.96, hemoglobin 15.3, hematocrit 41.4% and platelet count 8000. Patient received two daily doses at 1 g/kg between April 27, 2017 and April, and her repeat CBC on April 28, 2017 showed a platelet count of 12,000 , and on April 29, 2017 her platelet count was 23,000, trending up. Patient also started prednisone at daily doses of 80 mg on April 28, 2017. PAST MEDICAL HISTORY 1. Pneumonia. 2. History of broken bones. PAST SURGICAL HISTORY Insignificant. SOCIAL HISTORY Patient is engaged with no children. 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 She is a never smoker. She drinks socially. No abuse of illicit drugs. FAMILY HISTORY Maternal grandmother with Kingston's granulomatosis. Mother with breast cancer. Paternal grandfather with bladder cancer. Maternal grandfather with prostate cancer. CURRENT MEDICATIONS Nexium 20 mg daily. ALLERGIES CEFACLOR which caused hives. REVIEW OF SYSTEMS CONSTITUTIONAL: No appetite or weight change. No fever, chills. The patient has some sweating. No recent infection. HEENT: Ears: No tinnitus or hearing problem. Nose: No nasal discharge or epistaxis. Throat: No sore throat or mouth ulcers. Eyes: No diplopia or visual changes. RESPIRATORY: She has shortness of breath. No cough, expectoration or hemoptysis. CARDIOVASCULAR: No chest pain, orthopnea, or paroxysmal nocturnal dyspnea (PND) . No edema. She has palpitations. GASTROINTESTINAL: No nausea or vomiting. No diarrhea or constipation. No change in bowel movements. No heartburn or swallowing difficulties. The patient had an episode of severe epigastric pain with visit to the ER with ultrasound and chest x-ray done which did not show any abnormalities. Her pain recovered completely currently. No jaundice. No hematemesis, melena or rectal bleeding. GENITOURINARY: No hematuria or dysuria. MUSCULOSKELETAL: No pain in the muscles, joints or bones. NEUROLOGICAL: No tingling or numbness in the hands or feet. No headaches or convulsions. She has anxiety from the prednisone use. HEMATOLOGIC/LYMPHATIC: No bleeding or easy bruising. She has weakness and fatigue. SKIN: No skin rash or lumps. PSYCHIATRIC: No anxiety or depression. PHYSICAL EXAMINATION GENERAL: Looks stable. Well-developed, well-nourished, and in no acute distress. VITAL SIGNS: Blood pressure 116/85, pulse 106 per minute, respirations 16 per minute, temperature 98, pulse oximetry 94% on room air. HEENT: Head: Atraumatic. No sinus tenderness to palpation. Eyes: No icterus or conjunctivitis. Mouth and throat: No oral thrush or mucositis. NECK: Supple. No cervical or supraclavicular lymphadenopathy. LUNGS: Clear to auscultation and percussion bilaterally. HEART: Regular rate and rhythm. No gallops, murmurs, clicks or rubs. ABDOMEN: Soft and lax. No tenderness. No hepatosplenomegaly. No masses. EXTREMITIES: No cyanosis, clubbing or edema. LYMPHATICS: No peripheral lymphadenopathy. NEUROLOGICAL: Conscious, alert and oriented times three. No focal motor or sensory deficits. PSYCHIATRIC: Mood and affect appear normal. SKIN: No skin rash, bruise or purpuric eruption. DIAGNOSTIC DATA CBC showed white count 14.4, hemoglobin 15.5, hematocrit 42.1, platelets 241, 000. Chem panel totally normal except carbon dioxide 21. ASSESSMENT Iidiopathic thrombocytopenia purpura with severe thrombocytopenia. Initial platelet count was 7000. Patient received IVIG with improvement in her platelet count. She received also prednisone, and on tapering the prednisone, the patient had a relapse of her ITP, but the patient also had viral infection at that time. She was maintained on Nplate with initial response, but she showed no response after that. Patient for her recent relapse of in the past received IVIG and prednisone. She is continuing gradual prednisone taper. She is currently taking 45 mg daily. I advised the patient to decrease the dose every week, this time by 10 mg, and when she will reach 35 mg we are going to decrease the dose every week by 5 mg, and we will go gradually until to reach 2.5 mg for a week and then we will take the prednisone off. Her current platelet count is totally normal at 241,000 and the patient is happy with that. I am planning to check her count every week. I will see her in a month with CBC and chem panel at that time. PLAN 1. Continue gradual prednisone taper. Currently she is on 45 mg daily. 2. Decrease the dose of prednisone by 10 mg until we reach 35 mg, then we will decrease the dose by 5 mg weekly until we reach 5 mg, and after that we will go to 2.5 mg, and then we will stop. 3. CBC to be checked weekly. 4. Patient to return in one month with CBC and chem panel. 5. Patient to contact us for any new concern or complaints. ASHISH
[2018-04-12 12:17] LABS: PLATELET COUNT, AUTOMATED 253 K/uL (150-450)
[2018-04-12 13:24] VITALS: BP 129/95
[2018-04-18 14:41] LABS: PLATELET COUNT, AUTOMATED 204 K/uL (150-450)
[2018-04-18 15:30] VITALS: BP 121/91
[2018-04-30 08:16] VITALS: BP 132/95
[2018-04-30 08:22] LABS: PLATELET COUNT, AUTOMATED 201 K/uL (150-450)
[~2018-05-03 09:59] MED LIST changes: +ALTEPLASE RECOMB 2 MG VIAL IVP PRN; +DEXTROSE 5%(*) 100 ML BAG 100 ML IVPB PRN; +HEPARIN FLSH (PORT) 500 UN/5ML IVP PRN; +LIDOCAINE/SOD BICARB 8.4% SYR ID PRN; +NS(*) 0.9% 100 ML BAG 100 ML IVPB PRN; +NS(*) 0.9% 500 ML BAG 500 ML IV PRN; -ROMIPLOSTIM 250 MCG SUBQ ONE; +WATER FOR INJ,STERILE 20 ML IVP PRN
[2018-05-03 10:27] LABS: PLATELET COUNT, AUTOMATED 273 K/uL (150-450)
[2018-05-03 10:28] VITALS: BP 126/84
--- NOTE | 2018-05-03 12:23 | [facility] ONCOLOGY NOTE ---
EVENT DATE: May 03, 2018 DIAGNOSES Acute idiopathic thrombocytopenia purpura. CHIEF COMPLAINT Patient is here today for followup of her ITP. HEMATOLOGY HISTORY Patient is here today for followup of her ITP. She is doing very well currently except she has some occasional bruising. She is thought to have the manifestations of steroid overload with buffalo hump and looney fact but generally she does not have any other problems. She denies any proximal muscle myopathy. She feels anxious sometimes, most probably from her prednisone therapy. PAST MEDICAL HISTORY 1. Pneumonia. 2. History of broken bones. PAST SURGICAL HISTORY Insignificant. SOCIAL HISTORY Patient is engaged with no children. 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 She is a never smoker. She drinks socially. No abuse of illicit drugs. FAMILY HISTORY Maternal grandmother with Kingston's granulomatosis. Mother with breast cancer. Paternal grandfather with bladder cancer. Maternal grandfather with prostate cancer. CURRENT MEDICATIONS Nexium 20 mg daily. ALLERGIES CEFACLOR which caused hives. REVIEW OF SYSTEMS CONSTITUTIONAL: No appetite or weight change. No fever, chills. The patient has some sweating. No recent infection. HEENT: Ears: No tinnitus or hearing problem. Nose: No nasal discharge or epistaxis. Throat: No sore throat or mouth ulcers. Eyes: No diplopia or visual changes. RESPIRATORY: She has shortness of breath. No cough, expectoration or hemoptysis. CARDIOVASCULAR: No chest pain, orthopnea, or paroxysmal nocturnal dyspnea (PND). No edema. She has palpitations. GASTROINTESTINAL: No nausea or vomiting. No diarrhea or constipation. No change in bowel movements. No heartburn or swallowing difficulties. The patient had an episode of severe epigastric pain with visit to the ER with ultrasound and chest x-ray done which did not show any abnormalities. Her pain recovered completely currently. No jaundice. No hematemesis, melena or rectal bleeding. GENITOURINARY: No hematuria or dysuria. MUSCULOSKELETAL: No pain in the muscles, joints or bones. NEUROLOGICAL: No tingling or numbness in the hands or feet. No headaches or convulsions. She has anxiety from the prednisone use. HEMATOLOGIC/LYMPHATIC: She has occasional bruising. SKIN: She has a buffalo hump and looney face. PSYCHIATRIC: No anxiety or depression. PHYSICAL EXAMINATION GENERAL: Looks stable. Well-developed, well-nourished, and in no acute distress. VITAL SIGNS: Blood pressure 126/84, pulse 87 per minute, respirations 16 per minute, temperature 97.9, pulse oximetry 93% on room air. HEENT: Head: Atraumatic. No sinus tenderness to palpation. Eyes: No icterus or conjunctivitis. Mouth and throat: No oral thrush or mucositis. NECK: Supple. No cervical or supraclavicular lymphadenopathy. LUNGS: Clear to auscultation and percussion bilaterally. HEART: Regular rate and rhythm. No gallops, murmurs, clicks or rubs. ABDOMEN: Soft and lax. No tenderness. No hepatosplenomegaly. No masses. EXTREMITIES: No cyanosis, clubbing or edema. LYMPHATICS: No peripheral lymphadenopathy. NEUROLOGICAL: Conscious, alert and oriented times three. No focal motor or sensory deficits. PSYCHIATRIC: Mood and affect appear normal. SKIN: No skin rash, bruise or purpuric eruption. DIAGNOSTIC DATA CBC showed white count 12.3, hemoglobin 13.6, hematocrit 40.1, platelets 273,000. ASSESSMENT Idiopathic thrombocytopenia purpura with severe thrombocytopenia. Initial platelet count was 7000. Patient received IVIG with improvement in her platelet count. She received also prednisone and on tapering the prednisone,the patient had a relapse of her ITP but the patient also had viral infection at that time. She was maintained on Nplate with initial response but she showed no response after that. After her relapse, she received IVIG and prednisone. She is currently on gradual prednisone taper. She is taking currently, starting from tomorrow, 15 mg daily. I am planning to decrease the dose by 5 mg every week until we reach a dose of 5 mg and then we will go to 2.5 mg for another week and then we will stop prednisone. I am planning to see her in four weeks from now and hopefully she will remain having normal platelet count by that time. PLAN 1. Continue gradual prednisone taper. Decrease dose by 5 mg per week until we reach the dose of 5 mg and then we will give 2.5 mg daily for a week and then we will stop prednisone. 2. CBC to be checked weekly. 3. Patient to return in four weeks with CBC and chem panel. 4. Patient to contact us for any new concerns or complaints. ASHISH
== END 2018-05-06 ==
LOC: SPU 09:59
PROVIDERS: ATTEND Internal Medicine Hematology
DX: D69.3 Immune thrombocytopenic purpura (principal); D69.6 Thrombocytopenia, unspecified; R06.02 Shortness of breath; R00.2 Palpitations; R53.1 Weakness; R53.83 Other fatigue
CPT/HCPCS: 36415; 82040; 82247; 82310; 82374; 82435; 82565; 82947; 84075; 84132; 84155; 84295; 84450; 84460; 84520; 85025; 85027; 99212

== ENCOUNTER 2018-07-17 08:00 | Outpatient (RCR) | payer OTHER ==
[2018-02-06 08:36] VITALS: Wt 84.6 kg
[2018-05-07 08:21] VITALS: BP 134/96
[2018-05-07 08:33] LABS: PLATELET COUNT, AUTOMATED 307 K/uL (150-450)
[2018-05-14 08:25] VITALS: BP 120/90
[2018-05-14 08:30] LABS: PLATELET COUNT, AUTOMATED 268 K/uL (150-450)
[2018-05-21 08:22] VITALS: BP 117/86
[2018-05-21 08:31] LABS: PLATELET COUNT, AUTOMATED 234 K/uL (150-450)
[2018-05-28 08:35] VITALS: BP 136/90
[2018-05-28 08:38] LABS: PLATELET COUNT, AUTOMATED 207 K/uL (150-450)
[2018-05-31 13:06] VITALS: BP 141/80
--- NOTE | 2018-06-01 09:04 | EL-TAR[facility] ONCOLOGY NOTE ---
EVENT DATE: May 31, 2018 DIAGNOSES Acute idiopathic thrombocytopenia purpura. CHIEF COMPLAINT Patient is here today for followup of her ITP. HEMATOLOGY HISTORY Patient is here today for followup of her ITP. She is doing fine currently except for shortness of breath. Her buffalo hump is getting better after tapering the dose of prednisone and she currently has only one day to stop her prednisone completely. She denies any bleeding or easy bruising. PAST MEDICAL HISTORY 1. Pneumonia. 2. History of broken bones. PAST SURGICAL HISTORY Insignificant. SOCIAL HISTORY Patient is engaged with no children. 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 She is a never smoker. She drinks socially. No abuse of illicit drugs. FAMILY HISTORY Maternal grandmother with Kingston's granulomatosis. Mother with breast cancer. Paternal grandfather with bladder cancer. Maternal grandfather with prostate cancer. CURRENT MEDICATIONS Nexium 20 mg daily. ALLERGIES CEFACLOR which caused hives. REVIEW OF SYSTEMS CONSTITUTIONAL: No appetite or weight change. No fever, chills. The patient has some sweating. No recent infection. HEENT: Ears: No tinnitus or hearing problem. Nose: No nasal discharge or epistaxis. Throat: No sore throat or mouth ulcers. Eyes: No diplopia or visual changes. RESPIRATORY: She has exertional shortness of breath sometimes. CARDIOVASCULAR: No chest pain, orthopnea, or paroxysmal nocturnal dyspnea (PND). No edema. She has palpitations. GASTROINTESTINAL: No nausea or vomiting. No diarrhea or constipation. No change in bowel movements. No heartburn or swallowing difficulties. The patient had an episode of severe epigastric pain with visit to the ER with ultrasound and chest x-ray done which did not show any abnormalities. Her pain recovered completely currently. No jaundice. No hematemesis, melena or rectal bleeding. GENITOURINARY: No hematuria or dysuria. MUSCULOSKELETAL: No pain in the muscles, joints or bones. NEUROLOGICAL: No tingling or numbness in the hands or feet. No headaches or convulsions. She has anxiety from the prednisone use. HEMATOLOGIC/LYMPHATIC: She has occasional bruising. SKIN: She has a buffalo hump and looney face. PSYCHIATRIC: No anxiety or depression. PHYSICAL EXAMINATION GENERAL: Looks stable. Well-developed, well-nourished, and in no acute distress. VITAL SIGNS: Blood pressure 141/80, pulse 88 per minute, respirations 16 per minute, temperature 98.1, pulse oximetry 93% on room air. HEENT: Head: Atraumatic. No sinus tenderness to palpation. Eyes: No icterus or conjunctivitis. Mouth and throat: No oral thrush or mucositis. NECK: Supple. No cervical or supraclavicular lymphadenopathy. LUNGS: Clear to auscultation and percussion bilaterally. HEART: Regular rate and rhythm. No gallops, murmurs, clicks or rubs. ABDOMEN: Soft and lax. No tenderness. No hepatosplenomegaly. No masses. EXTREMITIES: No cyanosis, clubbing or edema. LYMPHATICS: No peripheral lymphadenopathy. NEUROLOGICAL: Conscious, alert and oriented times three. No focal motor or sensory deficits. PSYCHIATRIC: Mood and affect appear normal. SKIN: No skin rash, bruise or purpuric eruption. DIAGNOSTIC DATA CBC showed white count 6.5, hemoglobin 13.8, hematocrit 39.8, platelets 207,000. Chem panel is totally normal. ASSESSMENT Idiopathic thrombocytopenia purpura with severe thrombocytopenia. Initial platelet count was 7000. Patient received IVIG with improvement in her platelet count. She received also prednisone and on tapering her prednisone initially the patient had a relapse of her ITP but the patient at that time also had viral infection. She was maintained on Nplate with initial response but she showed no response after that. After her relapse, she received IVIG and prednisone and currently on gradual prednisone taper. Patient is currently receiving 2.5 mg and she has only one day and will stop completely her prednisone. I am planning to check her platelet count every week and I will see her in a month with CBC and chem panel. If she will drop her platelet count again then we will proceed with IVIG and a high dose of Nplate after that. I explained that to the patient. She is agreeable to the plan of management. PLAN 1. Continue followup. g 2. Stop prednisone after tomorrow's dose 3. CBC to be checked weekly. 4. Patient to return in one month with CBC and chem panel. 5. Patient to contact us for any new concerns or complaints. [facility]
[2018-06-05 13:11] LABS: PLATELET COUNT, AUTOMATED 244 K/uL (150-450)
[2018-06-11 10:13] LABS: PLATELET COUNT, AUTOMATED 234 K/uL (150-450)
[2018-06-18 11:26] VITALS: BP 109/73
[2018-06-18 11:51] LABS: PLATELET COUNT, AUTOMATED 244 K/uL (150-450)
[2018-06-27 10:20] LABS: PLATELET COUNT, AUTOMATED 159 K/uL (150-450)
[2018-07-03 14:18] VITALS: BP 122/81
[2018-07-03 14:25] LABS: PLATELET COUNT, AUTOMATED 280 K/uL (150-450)
[2018-07-05 12:39] VITALS: BP 117/83
--- NOTE | 2018-07-05 19:22 | ONCOLOGY FOLLOW UP NOTE ---
EVENT DATE: July 05, 2018 DIAGNOSIS Acute idiopathic thrombocytopenia purpura. CHIEF COMPLAINT Patient is here today for followup of her ITP. HEMATOLOGY HISTORY Patient is a 33-year-old female who was diagnosed with ITP lately. Patient treated initially with IVIG and prednisone, and on tapering her prednisone, she caught cold, and she had a relapse of her ITP. She was treated with IVIG after that on multiple occasions. Her last episode actually treated with slow prednisone taper, and her prednisone was discontinued a month ago. She is doing fine currently. HISTORY OF PRESENT ILLNESS Patient is here today for followup of her ITP. She is doing fine currently. She caught cold lately with cough, but she is doing very well and recovering from that. PAST MEDICAL HISTORY 1. Pneumonia. 2. History of broken bones. PAST SURGICAL HISTORY Insignificant. SOCIAL HISTORY Patient is engaged with no children. 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 She is a never smoker. She drinks socially. No abuse of illicit drugs. FAMILY HISTORY Maternal grandmother with [place] granulomatosis. Mother with breast cancer. Paternal grandfather with bladder cancer. Maternal grandfather with prostate cancer. CURRENT MEDICATIONS Nexium 20 mg daily. ALLERGIES CEFACLOR which caused hives. REVIEW OF SYSTEMS CONSTITUTIONAL: No appetite or weight change. No fever, chills. The patient has some sweating. No recent infection. HEENT: Ears: No tinnitus or hearing problem. Nose: No nasal discharge or epistaxis. Throat: No sore throat or mouth ulcers. Eyes: No diplopia or visual changes. RESPIRATORY: She has some cough, recovering from upper respiratory tract infection. CARDIOVASCULAR: No chest pain, orthopnea, or paroxysmal nocturnal dyspnea (PND). No edema. She has palpitations. GASTROINTESTINAL: No nausea or vomiting. No diarrhea or constipation. No change in bowel movements. No heartburn or swallowing difficulties. The patient had an episode of severe epigastric pain with visit to the ER with ultrasound and chest x-ray done which did not show any abnormalities. Her pain recovered completely currently. No jaundice. No hematemesis, melena, or rectal bleeding. GENITOURINARY: No hematuria or dysuria. MUSCULOSKELETAL: No pain in the muscles, joints, or bones. NEUROLOGICAL: No tingling or numbness in the hands or feet. No headaches or convulsions. She has anxiety from the prednisone use. HEMATOLOGIC/LYMPHATIC: She has occasional bruising. SKIN: She has a buffalo hump and looney face. PSYCHIATRIC: No anxiety or depression. PHYSICAL EXAMINATION GENERAL: Looks stable. Well developed, well nourished, and in no acute distress. VITAL SIGNS: Blood pressure 117/83, pulse 59 per minute, respirations 16 per minute, temperature 98.7, pulse oximetry 94% on room air. HEENT: Head: Atraumatic. No sinus tenderness to palpation. Eyes: No icterus or conjunctivitis. Mouth and throat: No oral thrush or mucositis. NECK: Supple. No cervical or supraclavicular lymphadenopathy. LUNGS: Clear to auscultation and percussion bilaterally. HEART: Regular rate and rhythm. No gallops, murmurs, clicks, or rubs. ABDOMEN: Soft and lax. No tenderness. No hepatosplenomegaly. No masses. EXTREMITIES: No cyanosis, clubbing, or edema. LYMPHATICS: No peripheral lymphadenopathy. NEUROLOGICAL: Conscious, alert, and oriented times three. No focal motor or sensory deficits. PSYCHIATRIC: Mood and affect appear normal. SKIN: No skin rash, bruise, or purpuric eruption. DIAGNOSTIC DATA CBC showed white count 7.3, hemoglobin 14.3, hematocrit 42.4, platelets 280,000. Chem panel is totally normal. ASSESSMENT Idiopathic thrombocytopenia purpura with severe thrombocytopenia. Initial platelet count was 7000. Patient received IVIG with improvement in her platelet count. She received also prednisone, and on tapering her prednisone initially, patient caught cold and had a relapse of her idiopathic thrombocytopenic purpura (ITP). She was maintained on Nplate with initial response, but she showed no response after that. Patient after her relapse received IVIG and prednisone. She was tapered off prednisone a month ago, and her platelet count remains normal at 280,000 this visit. I am planning to continue followup. I will do a blood count every two weeks, and I will see her in a month from now. Patient is happy with her response so far despite the fact she caught cold recently. PLAN 1. Continue followup. 2. Patient to return in one month with CBC. 3. CBC to be checked every two weeks. 4. Patient to contact us for any new concerns or complaints. ASHISH
[~2018-07-17 08:00] MED LIST changes: -ALTEPLASE RECOMB 2 MG VIAL IVP PRN; -DEXTROSE 5%(*) 100 ML BAG 100 ML IVPB PRN; -HEPARIN FLSH (PORT) 500 UN/5ML IVP PRN; +INFLUENZA VIRUS VAC 0.5ML SYR IM ONLY ONE; -LIDOCAINE/SOD BICARB 8.4% SYR ID PRN; -NS(*) 0.9% 100 ML BAG 100 ML IVPB PRN; -NS(*) 0.9% 500 ML BAG 500 ML IV PRN; -WATER FOR INJ,STERILE 20 ML IVP PRN
[2018-07-17 08:45] VITALS: BP 110/79
[2018-07-17 08:54] LABS: PLATELET COUNT, AUTOMATED 169 K/uL (150-450)
[2018-07-30 16:53] LABS: PLATELET COUNT, AUTOMATED 165 K/uL (150-450)
== END 2018-08-05 ==
LOC: SPU 08:00
PROVIDERS: ATTEND Internal Medicine Hematology
DX: D69.3 Immune thrombocytopenic purpura (principal); D69.6 Thrombocytopenia, unspecified; Z23 Encounter for immunization
CPT/HCPCS: 36415; 82040; 82247; 82310; 82374; 82435; 82565; 82947; 84075; 84132; 84155; 84295; 84450; 84460; 84520; 85025; 90471; 90674; 99212

== ENCOUNTER 2018-08-07 16:14 | Outpatient (RCR) | payer OTHER ==
[2018-02-06 08:36] VITALS: BMI 27.9
[~2018-08-07 16:14] MED LIST changes: -INFLUENZA VIRUS VAC 0.5ML SYR IM ONLY ONE
== END 2018-08-08 11:00 | disposition home or self-care (01) ==
LOC: SPU 16:14
PROVIDERS: ATTEND Internal Medicine Hematology
DX: D69.3 Immune thrombocytopenic purpura (principal); D69.6 Thrombocytopenia, unspecified; Z23 Encounter for immunization

== ENCOUNTER 2018-11-08 09:56 | Outpatient (RCR) | payer OTHER ==
[2018-02-06 08:36] VITALS: Wt 85.0 kg
[2018-08-13 09:07] LABS: PLATELET COUNT, AUTOMATED 138 K/uL (150-450)
[2018-08-30 10:17] VITALS: BP 128/87
[2018-08-30 10:22] LABS: PLATELET COUNT, AUTOMATED 85 K/uL (150-450)
--- NOTE | 2018-08-30 12:04 | [facility] ONCOLOGY NOTE ---
EVENT DATE: August 30, 2018 DIAGNOSIS Acute idiopathic thrombocytopenia purpura. CHIEF COMPLAINT Patient is here today for followup of her ITP. HEMATOLOGY HISTORY Patient is a 33-year-old female who was diagnosed with ITP lately. Patient treated initially with IVIG and prednisone, and on tapering her prednisone, she caught cold, and she had a relapse of her ITP. She was treated with IVIG after that on multiple occasions. Her last episode actually treated with slow prednisone taper, and her prednisone was discontinued a month ago. She is doing fine currently. HISTORY OF PRESENT ILLNESS Patient is here today for followup of her ITP. She is doing fine currently apart from having occasional epistaxis, the patient does not have any other problems. Patient claimed that she is and six weeks currently. PAST MEDICAL HISTORY 1. Pneumonia. 2. History of broken bones. PAST SURGICAL HISTORY Insignificant. SOCIAL HISTORY Patient is engaged with no children. 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 She is a never smoker. She drinks socially. No abuse of illicit drugs. FAMILY HISTORY Maternal grandmother with Kingston granulomatosis. Mother with breast cancer. Paternal grandfather with bladder cancer. Maternal grandfather with prostate cancer. CURRENT MEDICATIONS Nexium 20 mg daily. ALLERGIES CEFACLOR which caused hives. REVIEW OF SYSTEMS CONSTITUTIONAL: No appetite or weight change. No fever, chills. The patient has some sweating. No recent infection. HEENT: Ears: No tinnitus or hearing problem. Nose: She has occasional epistaxis. Throat: No sore throat or mouth ulcers. Eyes: No diplopia or visual changes. RESPIRATORY: She has some cough, recovering from upper respiratory tract infection. CARDIOVASCULAR: No chest pain, orthopnea, or paroxysmal nocturnal dyspnea (PND). No edema. She has palpitations. GASTROINTESTINAL: No nausea or vomiting. No diarrhea or constipation. No change in bowel movements. No heartburn or swallowing difficulties. The patient had an episode of severe epigastric pain with visit to the ER with ultrasound and chest x-ray done which did not show any abnormalities. Her pain recovered completely currently. No jaundice. No hematemesis, melena, or rectal bleeding. GENITOURINARY: No hematuria or dysuria. MUSCULOSKELETAL: No pain in the muscles, joints, or bones. NEUROLOGICAL: No tingling or numbness in the hands or feet. No headaches or convulsions. She has anxiety from the prednisone use. HEMATOLOGIC/LYMPHATIC: She has occasional bruising. SKIN: She has a buffalo hump and looney face. PSYCHIATRIC: No anxiety or depression. PHYSICAL EXAMINATION GENERAL: Looks stable. Well developed, well nourished, and in no acute distress. VITAL SIGNS: Blood pressure 128/87, pulse 75 per minute, respirations 16 per minute, temperature 97.8, pulse oximetry 95% on room air. HEENT: Head: Atraumatic. No sinus tenderness to palpation. Eyes: No icterus or conjunctivitis. Mouth and throat: No oral thrush or mucositis. NECK: Supple. No cervical or supraclavicular lymphadenopathy. LUNGS: Clear to auscultation and percussion bilaterally. HEART: Regular rate and rhythm. No gallops, murmurs, clicks, or rubs. ABDOMEN: Soft and lax. No tenderness. No hepatosplenomegaly. No masses. EXTREMITIES: No cyanosis, clubbing, or edema. LYMPHATICS: No peripheral lymphadenopathy. NEUROLOGICAL: Conscious, alert, and oriented times three. No focal motor or sensory deficits. PSYCHIATRIC: Mood and affect appear normal. SKIN: No skin rash, bruise, or purpuric eruption. DIAGNOSTIC DATA CBC showed white count 6.5, hemoglobin 14.7, hematocrit 43.4, platelets 85,000. ASSESSMENT Idiopathic thrombocytopenia purpura with severe thrombocytopenia. Initial platelet count was 7000. Patient received IVIG with improvement in her platelet count. She received also prednisone and on tapering her prednisone initially patient caught cold and had a relapse of her idiopathic thrombocytopenic purpura. She was maintained on Nplate with initial response but she showed no response after that. After her relapse, received IVIG and prednisone. Her prednisone was tapered off gradually and her platelet count normalized to 280,000. Patient currently is in her sixth week of gestation. Her current platelet count is 85,000. As she is in her first trimester and for the safety of the baby, I prefer to delay her treatment until it is really needed. I am planning to monitor her blood count twice per week and I will see her in two weeks from now. I talked to the patient about the possibility of IVIG and corticosteroids. I will check also the safety of rituximab if it will be needed to be given. PLAN 1. Continue followup. 2. CBC to be checked twice weekly. 3. Patient to return in two weeks with CBC. 4. Patient to contact us for any new concerns or complaints. MTDD
[2018-09-03 09:46] LABS: PLATELET COUNT, AUTOMATED 112 K/uL (150-450)
[2018-09-06 09:17] VITALS: BP 111/79
[2018-09-06 09:29] LABS: PLATELET COUNT, AUTOMATED 139 K/uL (150-450)
[2018-09-10 10:06] LABS: PLATELET COUNT, AUTOMATED 132 K/uL (150-450)
[2018-09-10 10:32] VITALS: BP 120/78
[2018-09-13 11:28] LABS: PLATELET COUNT, AUTOMATED 115 K/uL (150-450)
[2018-09-13 12:01] VITALS: BP 123/87
--- NOTE | 2018-09-14 09:38 | EL-[facility] ONCOLOGY NOTE ---
EVENT DATE: September 13, 2018 DIAGNOSIS Acute idiopathic thrombocytopenia purpura. CHIEF COMPLAINT Patient is here today for followup of her ITP. HEMATOLOGY HISTORY Patient is a 33-year-old female who was diagnosed with ITP lately. Patient treated initially with IVIG and prednisone, and on tapering her prednisone, she caught cold, and she had a relapse of her ITP. She was treated with IVIG after that on multiple occasions. Her last episode actually treated with slow prednisone taper, and her prednisone was discontinued a month ago. She is doing fine currently. HISTORY OF PRESENT ILLNESS Patient is here today for followup of her ITP. She is doing fine currently. She has some fatigue from her recent but denies any bleeding or easy bruising. PAST MEDICAL HISTORY 1. Pneumonia. 2. History of broken bones. PAST SURGICAL HISTORY Insignificant. SOCIAL HISTORY Patient is engaged with no children. 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 She is a never smoker. She drinks socially. No abuse of illicit drugs. FAMILY HISTORY Maternal grandmother with [place] granulomatosis. Mother with breast cancer. Paternal grandfather with bladder cancer. Maternal grandfather with prostate cancer. CURRENT MEDICATIONS Nexium 20 mg daily. ALLERGIES CEFACLOR, which caused hives. REVIEW OF SYSTEMS CONSTITUTIONAL: No appetite or weight change. No fever, chills. The patient has some sweating. No recent infection. HEENT: Ears: No tinnitus or hearing problem. Nose: She has occasional epistaxis. Throat: No sore throat or mouth ulcers. Eyes: No diplopia or visual changes. RESPIRATORY: She has some cough, recovering from upper respiratory tract infection. CARDIOVASCULAR: No chest pain, orthopnea, or paroxysmal nocturnal dyspnea (PND). No edema. She has palpitations. GASTROINTESTINAL: No nausea or vomiting. No diarrhea or constipation. No change in bowel movements. No heartburn or swallowing difficulties. The patient had an episode of severe epigastric pain with visit to the ER with ultrasound and chest x-ray done which did not show any abnormalities. Her pain recovered completely currently. No jaundice. No hematemesis, melena, or rectal bleeding. GENITOURINARY: No hematuria or dysuria. MUSCULOSKELETAL: No pain in the muscles, joints, or bones. NEUROLOGICAL: No tingling or numbness in the hands or feet. No headaches or convulsions. She has anxiety from the prednisone use. HEMATOLOGIC/LYMPHATIC: She has tiredness and fatigue from her but other than that she is doing really well. SKIN: She has a buffalo hump and looney face. PSYCHIATRIC: No anxiety or depression. PHYSICAL EXAMINATION GENERAL: Looks stable. Well developed, well nourished, and in no acute distress. VITAL SIGNS: Blood pressure 123/84, pulse 77 per minute, respirations 16 per minute, temperature 98.7, pulse oximetry 94% on room air. HEENT: Head: Atraumatic. No sinus tenderness to palpation. Eyes: No icterus or conjunctivitis. Mouth and throat: No oral thrush or mucositis. NECK: Supple. No cervical or supraclavicular lymphadenopathy. LUNGS: Clear to auscultation and percussion bilaterally. HEART: Regular rate and rhythm. No gallops, murmurs, clicks, or rubs. ABDOMEN: Soft and lax. No tenderness. No hepatosplenomegaly. No masses. EXTREMITIES: No cyanosis, clubbing, or edema. LYMPHATICS: No peripheral lymphadenopathy. NEUROLOGICAL: Conscious, alert, and oriented times three. No focal motor or sensory deficits. PSYCHIATRIC: Mood and affect appear normal. SKIN: No skin rash, bruise, or purpuric eruption. DIAGNOSTIC DATA CBC showed white count 5.8, hemoglobin 14.9, hematocrit 44, platelets 132,000. ASSESSMENT Idiopathic thrombocytopenic purpura with severe thrombocytopenia. Initial platelet count was 7000. Patient received IVIG with improvement in her platelet count. She received also prednisone and on tapering the prednisone initially patient caught cold and had a relapse of her idiopathic thrombocytopenic purpura. She was maintained on Nplate with initial response but she showed no response after that. After her relapse, she received IVIG and prednisone. Her prednisone was tapered off gradually and her platelet count normalized to 280,000. Patient currently is in her second month of gestation. Her current platelet count is 132,000, which is up from 85,000. Patient is still in her first trimester and I prefer not to use any medications for the safety of the baby so we will continue to monitor her count on a weekly basis and I will see her in a month with CBC at that time. I explained that to the patient. Patient is happy with her count currently. If she will need treatment in the future then we will consider steroids if she will pass her first trimester, which will be the safest. PLAN 1. Continue followup. 2. Patient to return in one month with CBC. 3. Check CBC every week. 4. Patient to contact us for any new concerns or complaints. ASHISH
[2018-09-20 08:26] VITALS: BP 117/76
[2018-09-20 08:40] LABS: PLATELET COUNT, AUTOMATED 89 K/uL (150-450)
[2018-09-27 10:34] VITALS: BP 123/76
[2018-09-27 10:37] LABS: PLATELET COUNT, AUTOMATED 96 K/uL (150-450)
[2018-10-04 08:13] VITALS: BP 128/69
[2018-10-04 08:29] LABS: PLATELET COUNT, AUTOMATED 87 K/uL (150-450)
[2018-10-11 08:16] VITALS: BP 119/85
[2018-10-11 08:28] LABS: PLATELET COUNT, AUTOMATED 69 K/uL (150-450)
--- NOTE | 2018-10-11 21:22 | EL-TARABILY ONCOLOGY NOTE ---
EVENT DATE: October 11, 2018 DIAGNOSIS Acute idiopathic thrombocytopenia purpura. CHIEF COMPLAINT Patient is here today for followup of her ITP. HEMATOLOGY HISTORY Patient is a 33-year-old female who was diagnosed with ITP lately. Patient treated initially with IVIG and prednisone, and on tapering her prednisone, she caught cold, and she had a relapse of her ITP. She was treated with IVIG after that on multiple occasions. Her last episode actually treated with slow prednisone taper, and her prednisone was discontinued a month ago. She is doing fine currently. HISTORY OF PRESENT ILLNESS Patient is here today for followup of her ITP. She is doing fine currently. She is at about 12 weeks' gestation, and patient denies any problems so far. She is totally asymptomatic today. She denies any excessive bruising. PAST MEDICAL HISTORY 1. Pneumonia. 2. History of broken bones. PAST SURGICAL HISTORY Insignificant. SOCIAL HISTORY Patient is engaged with no children. 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 She is a never smoker. She drinks socially. No abuse of illicit drugs. FAMILY HISTORY Maternal grandmother with [place] granulomatosis. Mother with breast cancer. Paternal grandfather with bladder cancer. Maternal grandfather with prostate cancer. CURRENT MEDICATIONS Nexium 20 mg daily. ALLERGIES CEFACLOR, which caused hives. REVIEW OF SYSTEMS CONSTITUTIONAL: No appetite or weight change. No fever, chills or sweating. No recent infection. HEENT: Ears: No tinnitus or hearing problem. Nose: No nasal discharge or epistaxis. Throat: No sore throat or mouth ulcers. Eyes: No diplopia or visual changes. RESPIRATORY: No shortness of breath. No cough, expectoration or hemoptysis. CARDIOVASCULAR: No chest pain, orthopnea, or paroxysmal nocturnal dyspnea (PND). No edema. No palpitations. GASTROINTESTINAL: No nausea or vomiting. No diarrhea or constipation. No change in bowel movements. No heartburn or swallowing difficulties. No abdominal pain. No jaundice. No hematemesis, melena or rectal bleeding. GENITOURINARY: No hematuria or dysuria. MUSCULOSKELETAL: No pain in the muscles, joints or bones. NEUROLOGICAL: No tingling or numbness in the hands or feet. No headaches or convulsions. HEMATOLOGIC/LYMPHATIC: No bleeding or easy bruising. No weakness or fatigued. No enlarged lymph nodes. SKIN: No skin rash or lumps. PSYCHIATRIC: No anxiety or depression. PHYSICAL EXAMINATION GENERAL: Looks stable. Well-developed, well-nourished, and in no acute distress. VITAL SIGNS: Blood pressure 119/85, pulse 76 per minute, respirations 16 per minute, temperature 98, pulse oximetry 96% on room air. HEENT: Head: Atraumatic. No sinus tenderness to palpation. Eyes: No icterus or conjunctivitis. Mouth and throat: No oral thrush or mucositis. NECK: Supple. No cervical or supraclavicular lymphadenopathy. LUNGS: Clear to auscultation and percussion bilaterally. HEART: Regular rate and rhythm. No gallops, murmurs, clicks or rubs. ABDOMEN: Soft and lax. No tenderness. No hepatosplenomegaly. No masses. EXTREMITIES: No cyanosis, clubbing or edema. LYMPHATICS: No peripheral lymphadenopathy. NEUROLOGICAL: Conscious, alert and oriented times three. No focal motor or sensory deficits. PSYCHIATRIC: Mood and affect appear normal. SKIN: No skin rash, bruise or purpuric eruption. DIAGNOSTIC DATA CBC showed white count 7000, hemoglobin 14.3, hematocrit 41.9, platelets 69,000. ASSESSMENT Idiopathic thrombocytopenic purpura with severe thrombocytopenia. Initial platelet count was 7000. Patient received IVIG with improvement of her platelet count. She received also prednisone, and on tapering the prednisone initially, patient caught cold and had a relapse of her idiopathic thrombocytopenic purpura. She was maintained on Nplate with initial response, but she showed no response after that. After her relapse, she received IVIG and prednisone. Her prednisone was tapered off gradually and her platelet count normalized to 280,000. Patient currently is in her twelfth week of gestation. Her current platelet count is 69,000, and the patient denies any bleeding or excessive bruising. For this reason, I am planning to continue to follow her count every week, and I will consider treatment with prednisone whenever the platelet count drops below 20,000 or if she is bleeding from that. I explained that to the patient. She is agreeable with the plan of management. PLAN 1. Continue followup. 2. Continue to monitor CBC every week. 3. Consider treatment with prednisone if platelet count drops below 20,000 or drops below 50,000 with clinical bleeding. 4. Patient to contact us for any new concerns or complaints. 5. Patient to return in one month with CBC and chem panel. [facility]
[2018-10-18 08:15] VITALS: BP 116/74
[2018-10-18 08:26] LABS: PLATELET COUNT, AUTOMATED 74 K/uL (150-450)
[2018-10-25 13:30] VITALS: BP 109/74
[2018-10-25 13:35] LABS: PLATELET COUNT, AUTOMATED 61 K/uL (150-450)
--- NOTE | 2018-10-25 17:00 | NUR ---
Dr. Alvarado notified of patient's platelet level from today's lab work. Will continue to monitor. No new orders received.
[2018-11-01 13:52] VITALS: BP 118/79
[2018-11-01 14:22] LABS: PLATELET COUNT, AUTOMATED 43 K/uL (150-450)
[2018-11-06 08:25] VITALS: BP 114/79
[2018-11-06 10:34] LABS: PLATELET COUNT, AUTOMATED 31 K/uL (150-450)
[2018-11-08 10:00] VITALS: BP 116/74
[2018-11-08 10:36] LABS: PLATELET COUNT, AUTOMATED 34 K/uL (150-450)
--- NOTE | 2018-11-08 19:15 | [facility] ONCOLOGY NOTE ---
EVENT DATE: November 08, 2018 DIAGNOSIS Acute idiopathic thrombocytopenia purpura. CHIEF COMPLAINT Patient is here today for followup of her ITP. HEMATOLOGY HISTORY Patient is a 33-year-old female who was diagnosed with ITP lately. Patient treated initially with IVIG and prednisone, and on tapering her prednisone, she caught cold, and she had a relapse of her ITP. She was treated with IVIG after that on multiple occasions. Her last episode actually treated with slow prednisone taper, and her prednisone was discontinued a month ago. She is doing fine currently. HISTORY OF PRESENT ILLNESS Patient is here today for followup of her ITP with thrombocytopenia during her . She has had two episodes of bloody noses which were short. She has also headache lately. She is currently in her 15th week of gestation. PAST MEDICAL HISTORY 1. Pneumonia. 2. History of broken bones. PAST SURGICAL HISTORY Insignificant. SOCIAL HISTORY Patient is engaged with no children. 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 She is a never smoker. She drinks socially. No abuse of illicit drugs. FAMILY HISTORY Maternal grandmother with [place] granulomatosis. Mother with breast cancer. Paternal grandfather with bladder cancer. Maternal grandfather with prostate cancer. CURRENT MEDICATIONS Nexium 20 mg daily. ALLERGIES CEFACLOR, which caused hives. REVIEW OF SYSTEMS CONSTITUTIONAL: No appetite or weight change. No fever, chills, or sweating. No recent infection. HEENT: Ears: No tinnitus or hearing problem. Nose: She has a runny nose lately. She has had two episodes of epistaxis, which were short. Throat: No sore throat or mouth ulcers. Eyes: No diplopia or visual changes. RESPIRATORY: No shortness of breath. No cough, expectoration, or hemoptysis. CARDIOVASCULAR: No chest pain, orthopnea, or paroxysmal nocturnal dyspnea (PND). No edema. No palpitations. GASTROINTESTINAL: No nausea or vomiting. No diarrhea or constipation. No change in bowel movements. No heartburn or swallowing difficulties. No abdominal pain. No jaundice. No hematemesis, melena, or rectal bleeding. GENITOURINARY: No hematuria or dysuria. MUSCULOSKELETAL: No pain in the muscles, joints, or bones. NEUROLOGICAL: No tingling or numbness in the hands or feet. She has headache. No convulsions. HEMATOLOGIC/LYMPHATIC: No bleeding or easy bruising. No weakness or fatigue. No enlarged lymph nodes. SKIN: No skin rash or lumps. PSYCHIATRIC: No anxiety or depression. PHYSICAL EXAMINATION GENERAL: Looks stable. Well developed, well nourished, and in no acute distress. VITAL SIGNS: Blood pressure 116/74, pulse 79 per minute, respirations 16 per minute, temperature 98.2, pulse ox 95% on room air. HEENT: Head: Atraumatic. No sinus tenderness to palpation. Eyes: No icterus or conjunctivitis. Mouth and throat: No oral thrush or mucositis. NECK: Supple. No cervical or supraclavicular lymphadenopathy. LUNGS: Clear to auscultation and percussion bilaterally. HEART: Regular rate and rhythm. No gallops, murmurs, clicks, or rubs. ABDOMEN: Soft and lax. No tenderness. No hepatosplenomegaly. No masses. EXTREMITIES: No cyanosis, clubbing, or edema. LYMPHATICS: No peripheral lymphadenopathy. NEUROLOGICAL: Conscious, alert, and oriented times three. No focal motor or sensory deficits. PSYCHIATRIC: Mood and affect appear normal. SKIN: No skin rash, bruise, or purpuric eruption. DIAGNOSTIC DATA CBC showed white count 6.9, hemoglobin 13.4, hematocrit 38.7, platelets 34,000. ASSESSMENT Idiopathic thrombocytopenic purpura with severe thrombocytopenia, initially presented with platelet count of 7000, and the patient received IVIG with improvement of her platelet count. She received also prednisone, and on tapering the prednisone initially, patient caught cold and had a relapse of her idiopathic thrombocytopenic purpura. She was maintained on Nplate with initial response, but she showed no response after that. After her relapse, she received IVIG and prednisone. Her prednisone was tapered off gradually, and her platelet count normalized to 280,000. She currently is in her 15th week of gestation. Her current platelet count is 34,000, and patient denies any bleeding or excessive bruising except for two simple bloody noses recently. I am planning to continue followup. I will check her CBC every week. I will see her in a month with CBC, chemistry panel, and I am planning to start treatment with prednisone when her platelet count is below 20,000 or with significant bleeding. I explained that to the patient. She is agreeable with the plan of management. PLAN 1. Continue followup. 2. CBC to be checked weekly. 3. Consider treatment with prednisone if the platelet count drops below 20,000 or she has significant bleeding. 4. Patient to contact us for any new concern or complaints. MTDD
== END 2018-11-10 ==
LOC: SPU 09:56
PROVIDERS: ATTEND Internal Medicine Hematology
DX: D69.3 Immune thrombocytopenic purpura (principal); D69.6 Thrombocytopenia, unspecified; Z23 Encounter for immunization; R04.0 Epistaxis; O99.111 Other diseases of the blood and blood-forming organs and certain disorders involving the immune mechanism complicating pregnancy, first trimester; Z3A.01 Less than 8 weeks gestation of pregnancy
CPT/HCPCS: 36415; 85025; 99212

== ENCOUNTER 2019-02-06 14:02 | Outpatient (RCR) | payer OTHER ==
[2018-02-06 08:36] VITALS: Wt 89.1 kg
[2018-11-15 10:17] VITALS: BP 112/74
[2018-11-15 10:59] LABS: PLATELET COUNT, AUTOMATED 48 K/uL (150-450)
[2018-11-20 15:26] VITALS: BP 105/78
[2018-11-20 15:42] LABS: PLATELET COUNT, AUTOMATED 51 K/uL (150-450)
[2018-12-02 08:36] VITALS: BP 125/70
[2018-12-02 08:48] LABS: PLATELET COUNT, AUTOMATED 32 K/uL (150-450)
[2018-12-06 12:10] VITALS: BP 123/76
[2018-12-06 12:13] LABS: PLATELET COUNT, AUTOMATED 61 K/uL (150-450)
[2018-12-12 11:31] LABS: PLATELET COUNT, AUTOMATED 38 K/uL (150-450)
[2018-12-12 11:46] VITALS: BP 106/76
--- NOTE | 2018-12-12 14:10 | ONCOLOGY FOLLOW UP NOTE ---
EVENT DATE: December 12, 2018 DIAGNOSIS Acute idiopathic thrombocytopenia purpura. CHIEF COMPLAINT Patient is here today for followup of her ITP. HEMATOLOGY HISTORY Patient is a 33-year-old female who was diagnosed with ITP lately. Patient treated initially with IVIG and prednisone, and on tapering her prednisone, she caught cold, and she had a relapse of her ITP. She was treated with IVIG after that on multiple occasions. Her last episode actually treated with slow prednisone taper, and her prednisone was discontinued a month ago. She is doing fine currently. HISTORY OF PRESENT ILLNESS Patient is here today for followup of her ITP with thrombocytopenia during her . She is currently about five months of her 20th week of gestation. She is complaining of occasional headaches and bruising but denies any petechiae or bleeding. PAST MEDICAL HISTORY 1. Pneumonia. 2. History of broken bones. PAST SURGICAL HISTORY Insignificant. SOCIAL HISTORY Patient is engaged with no children. 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 She is a never smoker. She drinks socially. No abuse of illicit drugs. FAMILY HISTORY Maternal grandmother with [place] granulomatosis. Mother with breast cancer. Paternal grandfather with bladder cancer. Maternal grandfather with prostate cancer. CURRENT MEDICATIONS Nexium 20 mg daily. ALLERGIES CEFACLOR, which caused hives. REVIEW OF SYSTEMS CONSTITUTIONAL: No appetite or weight change. No fever, chills, or sweating. No recent infection. HEENT: Ears: No tinnitus or hearing problem. Nose: She has a runny nose lately. She has had two episodes of epistaxis, which were short. Throat: No sore throat or mouth ulcers. Eyes: No diplopia or visual changes. RESPIRATORY: No shortness of breath. No cough, expectoration, or hemoptysis. CARDIOVASCULAR: No chest pain, orthopnea, or paroxysmal nocturnal dyspnea (PND). No edema. No palpitations. GASTROINTESTINAL: No nausea or vomiting. No diarrhea or constipation. No change in bowel movements. No heartburn or swallowing difficulties. No abdominal pain. No jaundice. No hematemesis, melena, or rectal bleeding. GENITOURINARY: No hematuria or dysuria. MUSCULOSKELETAL: No pain in the muscles, joints, or bones. NEUROLOGICAL: She has occasional headache. HEMATOLOGIC/LYMPHATIC: She has bruising sometime. SKIN: Denies any petechiae. PSYCHIATRIC: No anxiety or depression. PHYSICAL EXAMINATION GENERAL: Looks stable. Well developed, well nourished, and in no acute distress. VITAL SIGNS: Blood pressure 106/76, pulse 76 per minute, respirations 16 per minute, temperature 98.3, pulse ox 94% on room air. HEENT: Head: Atraumatic. No sinus tenderness to palpation. Eyes: No icterus or conjunctivitis. Mouth and throat: No oral thrush or mucositis. NECK: Supple. No cervical or supraclavicular lymphadenopathy. LUNGS: Clear to auscultation and percussion bilaterally. HEART: Regular rate and rhythm. No gallops, murmurs, clicks, or rubs. ABDOMEN: Soft and lax. No tenderness. No hepatosplenomegaly. No masses. EXTREMITIES: No cyanosis, clubbing, or edema. LYMPHATICS: No peripheral lymphadenopathy. NEUROLOGICAL: Conscious, alert, and oriented times three. No focal motor or sensory deficits. PSYCHIATRIC: Mood and affect appear normal. SKIN: No skin rash, bruise, or purpuric eruption. DIAGNOSTIC DATA CBC showed white count 9.2, hemoglobin 12.3, hematocrit 36, platelets 38,000. Chem panel totally normal except total bilirubin 0.1 and sodium 136. ASSESSMENT Idiopathic thrombocytopenic purpura with severe thrombocytopenia. She initially presented with platelet count of 7000 and the patient received IVIG with improvement of her platelet count. She received also prednisone and on tapering the prednisone initially patient caught cold and had a relapse of her idiopathic thrombocytopenic purpura. She was maintained on Nplate with initial response but she showed no response after that. After her relapse, she received IVIG and prednisone. Her prednisone was tapered off gradually and her platelet count normalized to 280,000. She is currently in her 20th week of gestation. Her current platelet count is 38,000, which is stable, and patient denies any clinical bleeding or petechiae. She has occasional bruising but they are not excessive. She is currently in her fifth month of gestation or week 20. She is doing very well currently. I am planning to repeat her CBC every week and I will see her in a month from now. If the platelet count drops below 20,000, then we will consider treatment with prednisone. PLAN 1. Continue followup. 2. CBC to be checked weekly. 3. Patient to return in four weeks with CBC. 4. Consider treatment with prednisone if platelet count drops below 20,000. 5. Patient to contact us for any new concern or complaints. MTDD
[2018-12-19 08:39] VITALS: BP 118/80
[2018-12-19 09:18] LABS: PLATELET COUNT, AUTOMATED 48 K/uL (150-450)
[2018-12-24 15:12] VITALS: BP 116/67
[2018-12-24 15:27] LABS: PLATELET COUNT, AUTOMATED 50 K/uL (150-450)
[2018-12-31 13:40] VITALS: BP 100/67
[2018-12-31 13:48] LABS: PLATELET COUNT, AUTOMATED 37 K/uL (150-450)
[2019-01-09 10:29] LABS: PLATELET COUNT, AUTOMATED 59 K/uL (150-450)
[2019-01-09 10:54] VITALS: BP 134/73
--- NOTE | 2019-01-09 14:48 | [facility] ONCOLOGY NOTE ---
EVENT DATE: January 19, 2019 DIAGNOSIS Acute idiopathic thrombocytopenia purpura. CHIEF COMPLAINT Patient is here today for followup of her ITP. HEMATOLOGY HISTORY Patient is a 33-year-old female who was diagnosed with ITP lately. Patient treated initially with IVIG and prednisone, and on tapering her prednisone, she caught cold, and she had a relapse of her ITP. She was treated with IVIG after that on multiple occasions. Her last episode actually treated with slow prednisone taper, and her prednisone was discontinued a month ago. She is doing fine currently. HISTORY OF PRESENT ILLNESS Patient is here today for followup of her ITP with thrombocytopenia during her . She is currently in her 24th week of gestation. She is doing very well currently and she is totally asymptomatic. PAST MEDICAL HISTORY 1. Pneumonia. 2. History of broken bones. PAST SURGICAL HISTORY Insignificant. SOCIAL HISTORY Patient is engaged with no children. 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 She is a never smoker. She drinks socially. No abuse of illicit drugs. FAMILY HISTORY Maternal grandmother with [place] granulomatosis. Mother with breast cancer. Paternal grandfather with bladder cancer. Maternal grandfather with prostate cancer. CURRENT MEDICATIONS Nexium 20 mg daily. ALLERGIES CEFACLOR, which caused hives. REVIEW OF SYSTEMS CONSTITUTIONAL: No appetite or weight change. No fever, chills, or sweating. No recent infection. HEENT: Ears: No tinnitus or hearing problem. Nose: She has a runny nose lately. She has had two episodes of epistaxis, which were short. Throat: No sore throat or mouth ulcers. Eyes: No diplopia or visual changes. RESPIRATORY: No shortness of breath. No cough, expectoration, or hemoptysis. CARDIOVASCULAR: No chest pain, orthopnea, or paroxysmal nocturnal dyspnea (PND). No edema. No palpitations. GASTROINTESTINAL: No nausea or vomiting. No diarrhea or constipation. No change in bowel movements. No heartburn or swallowing difficulties. No abdominal pain. No jaundice. No hematemesis, melena, or rectal bleeding. GENITOURINARY: No hematuria or dysuria. MUSCULOSKELETAL: No pain in the muscles, joints, or bones. NEUROLOGICAL: She has occasional headache. HEMATOLOGIC/LYMPHATIC: She has bruising sometime. SKIN: Denies any petechiae. PSYCHIATRIC: No anxiety or depression. PHYSICAL EXAMINATION GENERAL: Looks stable. Well developed, well nourished, and in no acute distress. VITAL SIGNS: Blood pressure 116/78, pulse 78 per minute, respirations 16 per minute, temperature 98.3, pulse ox 94% on room air. HEENT: Head: Atraumatic. No sinus tenderness to palpation. Eyes: No icterus or conjunctivitis. Mouth and throat: No oral thrush or mucositis. NECK: Supple. No cervical or supraclavicular lymphadenopathy. LUNGS: Clear to auscultation and percussion bilaterally. HEART: Regular rate and rhythm. No gallops, murmurs, clicks, or rubs. ABDOMEN: Soft and lax. No tenderness. No hepatosplenomegaly. No masses. EXTREMITIES: No cyanosis, clubbing, or edema. LYMPHATICS: No peripheral lymphadenopathy. NEUROLOGICAL: Conscious, alert, and oriented times three. No focal motor or sensory deficits. PSYCHIATRIC: Mood and affect appear normal. SKIN: No skin rash, bruise, or purpuric eruption. DIAGNOSTIC DATA CBC showed white count 8.9, hemoglobin 12.7, hematocrit 37.4, platelets 59,000. Chem panel totally normal except sodium 135, total protein 6.1, albumin 3.4. ASSESSMENT Idiopathic thrombocytopenic purpura with severe thrombocytopenia in the past. Patient initially presented with platelet count of 7000 and the patient received IVIG with improvement of her platelet count. She received also prednisone and on tapering prednisone initially patient caught cold and had a relapse of her idiopathic thrombocytopenic purpura. She was maintained on Nplate with initial response but she showed no response after that. After her relapse, she received IVIG and prednisone. Her prednisone was tapered off gradually and her platelet count normalized to 280,000. She is currently in her 24th week of gestation and her current platelet count is 59,000, which is up from 28,000. Patient denies any bleeding or easy bruising. She is really doing very well so far. I am planning to continue followup. I will check her CBC every week and I will see her again in a month with CBC and chem panel. We may consider prednisone therapy prior to her delivery. PLAN 1. Continue followup. 2. CBC to be checked weekly. 3. Patient to return in one month with CBC. 4. Consider treatment with prednisone if platelet count is less than 20,000. 5. Patient to contact us for any new concern or complaints. [facility]
[2019-01-16 08:25] LABS: PLATELET COUNT, AUTOMATED 68 K/uL (150-450)
[2019-01-16 08:46] VITALS: BP 117/77
[2019-01-24 12:47] VITALS: BP 105/67
[2019-01-24 13:15] LABS: PLATELET COUNT, AUTOMATED 63 K/uL (150-450)
[2019-01-31 16:02] LABS: PLATELET COUNT, AUTOMATED 73 K/uL (150-450)
[2019-01-31 16:39] VITALS: BP 142/77
[2019-02-06 14:23] VITALS: BP 111/76
[2019-02-06 14:28] LABS: PLATELET COUNT, AUTOMATED 84 K/uL (150-450)
== END 2019-02-13 ==
LOC: SPU 14:02
PROVIDERS: ATTEND Internal Medicine Hematology
DX: O99.112 Other diseases of the blood and blood-forming organs and certain disorders involving the immune mechanism complicating pregnancy, second trimester (principal); D69.6 Thrombocytopenia, unspecified; D69.3 Immune thrombocytopenic purpura; Z3A.24 24 weeks gestation of pregnancy
CPT/HCPCS: 36415; 82040; 82247; 82310; 82374; 82435; 82565; 82947; 84075; 84132; 84155; 84295; 84450; 84460; 84520; 85025; 99212